=== PATIENT | female | born 1970 | race Caucasian/White ===

== ENCOUNTER 2018-11-14 00:23 | Inpatient (IN) | payer BC ==
--- NOTE | 2018-11-13 13:36 | LEVENE H&P ---
DATE OF ADMISSION: November 14, 2018 IDENTIFICATION/CHIEF COMPLAINT The patient is a 48-year-old woman with a chief complaint of right knee pain. HISTORY OF PRESENT ILLNESS The patient has a long standing history of debilitating arthritis, both DJD as well as rheumatoid that has been progressively problematic and refractory to conservative care. Surgery is indicated to relieve symptoms after failure of nonoperative measures. PAST MEDICAL HISTORY Notable for the above known history of rheumatoid arthritis. PAST SURGICAL HISTORY 1. Known for a hysterectomy. 2. Bladder lift. 3. Bilateral knee surgeries. 4. Cholecystectomy. 5. Tonsillectomy. ALLERGIES GABAPENTIN which causes itching. CURRENT MEDICATIONS 1. Chantix 1 mg p.o. b.i.d. 2. Omeprazole 40 mg p.o. q day. 3. Methotrexate 25 mg once a week injected. 4. Diclofenac 75 mg p.o. b.i.d. 5. Metoprolol 25 mg p.o. q day. 6. Folate 1 mg p.o. q day. 7. Vitamin D 1000 units per day. 8. Pain medicine rarely used as needed Hydrocodone for intense discomfort. FAMILY HISTORY Non-contributory. SOCIAL HISTORY Notable for smoking for 35 years. She has quit just recently in preparation for surgery. She drinks alcohol socially. She denies abuse. REVIEW OF SYSTEMS Negative. PHYSICAL EXAMINATION GENERAL: This is a healthy female. HEENT: Normocephalic, atraumatic. NECK: Supple. LUNGS: Clear to auscultation bilaterally. HEART: Regular rate and rhythm. ABDOMEN: Benign. ORTHOPEDIC EXAMINATION The right knee has a well healed prior portals. Varus alignment is noted. Effusion is present. She is still at end range. Extensor function is intact. Gross stability is good. RADIOGRAPHS Demonstrate endstage degenerative joint disease. ASSESSMENT Right knee endstage degenerative joint disease progressively painful and debilitating, refractory to conservative care. PLAN Per patient request, we are going to proceed with total knee arthroplasty. The nature of the procedure, the risks, benefits, the anticipated rehabilitative course were reviewed. Risks include but are not limited to , major medical or anesthetic complication, infection, neurovascular injury,blood transfusion, stiffness, scarring, fraction, tendon rupture, instability, implant loosening, migration or failure, persistent or recurrent pain or symptoms, need for additional surgery and other unforeseen. She understands and wishes to proceed. A signed permit is placed in the chart. No guarantees are given or implied. MTDD
[2018-11-13 14:50] LABS: INR 1.01
[2018-11-14] VITALS (9 sets, daily range): BP systolic 117–140; BP diastolic 74–92
[~2018-11-14] VITALS: Ht 162.6 cm; Wt 108.4 kg
[~2018-11-14 00:23] MED LIST: AMOX875T60 PO; ASPI-757 PO; CYCL10TA29 PO; DAP500I IV; DIAZ-308 PO; DICL-195 PO; HYDR-389 PO; METO25TA23 PO; OMEP40CA48 PO; VARE1TAB4 PO
[2018-11-14] MEDS ORDERED: VANCOMYCIN 1 GM VIAL ONE (10:10)
[2018-11-14] MEDS ORDERED: LIDOCAINE 2% IV 100 MG/5ML SYR ONE (11:12)
[2018-11-14] MEDS ORDERED: NORMOSOL R SOLN(*) 1000 ML BAG 1,000 ML IV PRN ×2 (11:15→16:00)
[2018-11-14] MEDS ORDERED: LIDOCAINE/SOD BICARB 8.4% SYR ID ONE (11:15)
[2018-11-14] MEDS ORDERED: PREGABALIN 150 MG CAPSULE PO ONE (11:15)
[2018-11-14] MEDS ORDERED: MIDAZOLAM 2 MG/2 ML VIAL IVP PRN (11:15)
[2018-11-14] MEDS ORDERED: ACETAMINOPHEN 500 MG TAB PO ONE (11:15)
[2018-11-14] MEDS ORDERED: CELECOXIB 200 MG CAP PO ONE (11:15)
[2018-11-14] MEDS ORDERED: ROPIVACAINE/EPI/CLONIDINE/KET 50 ML SYRINGE INJ ONE (11:15)
[2018-11-14] MEDS ORDERED: TRANEXAMIC AC 1000 MG/10ML SDV 1,000 MG in DEXTROSE 5% 50 ML BAG 50 ML IV ONE ×2 (11:15→13:45)
[2018-11-14] MEDS ORDERED: ceFAZolin(*) 2GM/D5W 50ML 50 ML IVPB ONE (11:15)
[2018-11-14] MEDS ORDERED: fentaNYL CITR 100 MCG/2 ML AMP ONE ×2 (11:17→14:02)
[2018-11-14] MEDS ORDERED: PROPOFOL EMUL(*) 10MG/ML 20 ML 20 ML ONE (11:21)
[2018-11-14] MEDS ORDERED: DEXAMETHASONE SOD PHOS 10MG/ML ONE (13:28)
[2018-11-14] MEDS ORDERED: ONDANSETRON 4 MG/2 ML VIAL ONE (13:29)
[2018-11-14] MEDS ORDERED: KETAMINE HCL 200 MG/20 ML MDV ONE (13:30)
[2018-11-14] MEDS ORDERED: LACTATED RINGER 3000 ML BAG IR ONE (14:19)
[2018-11-14] MEDS ORDERED: NS 0.9% IRRIGATION 1000ML PLCT IR ONE (14:20)
[2018-11-14] MEDS ORDERED: WATER STERILE FOR IRRIG 1000ML IR ONE (14:20)
[2018-11-14] MEDS ORDERED: MAGNESIUM HYDROXIDE* 30ML UDCP PO PRN (16:00)
[2018-11-14] MEDS ORDERED: BENZOCAINE/MENTHOL 1 EACH LOZG PO PRN (16:00)
[2018-11-14] MEDS ORDERED: diphenhydrAMINE 50 MG/ML VIAL IVP PRN (16:00)
[2018-11-14] MEDS ORDERED: PROMETHAZINE 25 MG/ML 1 ML AMP IVP PRN (16:00)
[2018-11-14] MEDS ORDERED: DIAZEPAM 5 MG TAB PO PRN (16:00)
[2018-11-14] MEDS ORDERED: diphenhydrAMINE 25 MG CAP PO PRN (16:00)
[2018-11-14] MEDS ORDERED: FLUSH 10 ML SYR IVP PRN (16:00)
[2018-11-14] MEDS ORDERED: ZOLPIDEM TARTRATE 5 MG TAB PO PRN (16:00)
[2018-11-14] MEDS ORDERED: ACETAMINOPHEN 325 MG TAB PO PRN (16:00)
[2018-11-14] MEDS ORDERED: BISACODYL 10 MG SUPP PR PRN (16:00)
--- NOTE | 2018-11-14 16:32 | RADIOLOGY IMAGING REPORT ---
FACILITY: [facility] - [place] PATIENT NAME: Mireya Lovelace : 1970 MR: [id number] V: [id number] EXAM DATE: ORDERING PHYSICIAN: CHINO RUTLEDGE TECHNOLOGIST: Location: [facility] [place] Patient: Mireya Lovelace : 1970 Visit/Account:[id number] Date of Sevice: 11/14/2018 KNEE LIMITED RIGHT Indication: POST R TKA Comparison: None. Findings: There are postoperative changes from right total knee arthroplasty. The femoral, patellar, and tibial components are in good alignment. Impression: Postoperative changes right total knee arthroplasty. Report Dictated By: Óscar Lambert at 11/14/2018 4:27 PM Report E-Signed By: Óscar Lambert at 11/14/2018 4:28 PM WSN:[id number]
[2018-11-14] MEDS: APAP/HYDROCODONE 325/7.5 TAB PO PRN ×2 (17:25→23:38)
[2018-11-14] MEDS: CELECOXIB 200 MG CAP PO SCH (17:43)
--- NOTE | 2018-11-14 18:07 | Hospitalist Consultation ---
History of Present Illness Requesting Physician Dr. Lopez Reason for Consult Medical Management Chief Complaint s/p right knee replacement History of Present Illness She was admitted s/p right knee replacement. It is reported the surgery went well and without complication. History Problems: (1) RA (rheumatoid arthritis) Status: Chronic (2) Santoro's esophagus Status: Chronic (3) Arrhythmia Home Meds Reported Medications Metoprolol Succinate (METOPROLOL SUCCINATE) Unknown Strength Tab.er.24h, PO QDAY, TAB 11/08/18 Varenicline Tartrate (CHANTIX) 1 Mg Tablet, 1 MG PO BID 11/08/18 Acetaminophen/Hydrocodone (HYDROCODON-ACETAMINOPH 7.5-325) 1 Each Ea, 1 EACH PO QDAY PRN for PAIN, EA 09/07/17 Cyclobenzaprine Hcl (CYCLOBENZAPRINE HCL) 10 Mg Tablet, 10 MG PO PRN, #9 TAB 09/07/17 Omeprazole (OMEPRAZOLE) 40 Mg Capsule.dr, 40 MG PO QDAY, CAP 09/07/17 Discontinued Reported Medications Aspirin (ASPIRIN) 325 Mg Tablet, 325 MG PO DAILY, TAB 09/10/17 Daptomycin (CUBICIN) 500 Mg Soln, 660 MG IV DAILY 09/10/17 Diclofenac Sodium (DICLOFENAC SODIUM) 75 Mg Tablet.dr, 75 MG PO BID, TAB 09/07/17 Allergies: Coded Allergies: No Known Drug Allergies (Unverified , 09/07/17) Hx Smoking: Yes Smoking Status: Former Smoker, Heavy Tobacco Smoker When Quit Tobacco?: 11/04/18 Caffeine Intake: Soda Caffeine/Cups Per Day: 6/DAY Hx Alcohol Use: Yes Alcohol Used: Beer Hx Substance Use Disorder: Yes Social Drug Use: Currently Social Drugs: Marijuana, Meth Other Social Drugs: CBD, SPEED Amount Of Social Drug/s Used: 1-2/MONTH History of IV Drug Use: No Review of Systems All Systems Reviewed/Normal: Yes, Except as Noted Exam Vital Signs Vital Signs Date Time Temp Pulse Resp B/P (MAP) Pulse Ox O2 Delivery O2 Flow Rate FiO2 11/14/18 17:10 81 12 98 11/14/18 17:10 97.9 117/78 (91) Nasal Cannula 2.0 General Appearance: Alert, Awake, No Acute Distress, Afebrile Neuro: No Gross deficits Cardiovascular: Regular Rate and Rhythm Respiratory: No Respiratory Distress, Clear to Auscultation GI: Abd Soft and Non-Tender Psych: Alert & Oriented X3, Appropriate Mood & Affect Assessment and Plan Problems: (1) Status post right knee replacement Status: Acute Assessment & Plan: Followed by Dr. Lopez. She will be placed on Aspirin for DVT prophylaxis. (2) Santoro's esophagus Status: Chronic Assessment & Plan: She is on chronic treatment with Omeprazole. She will be placed on Protonix during admission. (3) RA (rheumatoid arthritis) Status: Chronic Assessment & Plan: She was on chronic treatment with Methotrexate, but stopped 5 weeks ago in anticipation of surgery. (4) Arrhythmia Assessment & Plan: She recently was found to have "extra heart beats". Had echo, essentially normal per pt. She reports her PCP placed her on Metoprolol to take for arrhythmia. Venous Thromboembolism Antithrombotics Is Pt On Any Antithrombotics?: RAS Garcia Nov 14, 2018 18:07
--- NOTE | 2018-11-14 21:28 | OPERATIVE REPORT 1 ---
EVENT DATE: November 14, 2018 SURGEON: Gamaliel Lopez MD ANESTHESIOLOGIST: Russ Chisholm MD ANESTHESIA: General plus spinal. INFANTRY OFFICER: Sathish Vargas PA-C PREOPERATIVE DIAGNOSIS Right knee degenerative joint disease and superimposed rheumatoid arthritis. POSTOPERATIVE DIAGNOSIS Right knee degenerative joint disease and superimposed rheumatoid arthritis. PROCEDURE PERFORMED Right total knee arthroplasty. ESTIMATED BLOOD LOSS Minimal. DRAINS None. SPECIMENS None. COMPLICATIONS None apparent. TOURNIQUET TIME 55 minutes IMPLANTS USED [employer] knee system, a 4 right PS femur, 4 standard tibial baseplate, 33 mm universal, symmetric, all-polyethylene button, and a 13 mm PS tibial tray liner. Polyethylene is X3. INDICATIONS Mireya has had intractable pain and disability related to end-stage arthritis. Surgery is indicated to relieve symptoms after failure of other measures. DESCRIPTION OF PROCEDURE Patient is taken to the operating room and placed supine on the operating table. Spinal nerve block is administered by the anesthesiologist. General anesthesia is induced. Standard antibiotics and TXA are administered IV. Right lower extremity is prepped and draped in the usual sterile fashion for orthopedic surgery. Limb is exsanguinated with an Esmarch bandage. Tourniquet is inflated to 300 mmHg. A midline longitudinal incision is made and carried down through the skin and subcutaneous tissue to the extensor mechanism. Full-thickness flap is developed far enough medially to allow a medial parapatellar arthrotomy be performed. Patella is everted. Knee is brought into a flexed position. Fat pad, anterior horns of the menisci, and the cruciate ligaments are debrided. Subperiosteal medial release is initiated to balance the knee in a titrated fashion due to the varus deformity. A step drill is used to enter the distal femur. A 10-inch long alignment guide is used to engage the isthmus. Cut is set for 6 degrees of valgus relative to the anatomic axis. A 10 mm resection block is applied to the distal femoral, cuts made with an oscillating saw. AP sizing guide is applied to the distal femoral cut and positioned for 3 degrees of external rotation relative to the posterior condyles. The size 4 is optimal without risk of notching. A four-in-one cutting block is applied. Anterior, posterior, posterior chamfer, and anterior chamfer cuts are made respectively. PS block is applied and centered. Medial and lateral bone is removed through the box. Trial femur has nice [id number] fit. Attention is turned to tibial preparation. Extramedullary guide is applied, positioned for varus, valgus, posterior slope, and rotation. This is set to take 9 mm from the relatively intact lateral tibial plateau. It is dropped down another millimeter or two to assure an adequate cut. Block is pinned, extramedullary alignment check is made, and cuts are made with an oscillating saw. After osteophyte removal and a bit of additional medial release, the capsule is balanced and symmetric with no additional releases required. The size 4 tibial baseplate provides optimum bony coverage without soft tissue overhang. This is inserted along with the trial liner and trial femur. Knee is brought to extension. Patella is taken from a starting thickness of 23 to a residual of 14 mm with a patellar clamp and oscillating saw. The 33 provides optimal bony coverage without soft tissue overhang. Lug holes are drilled. Patella tracks nicely with the no-touch technique. Final tibial preparation consists of assuring appropriate rotational and translational positioning of the component. Boss is reamed. Fin is punched. Surface is lavaged. A mix of methacrylate is made, and components are cemented in a single stage. Once the cement is fully polymerized, tourniquet is deflated. Hemostasis is assured. Wound is copiously lavaged. A 13 PS tibial tray liner fills up the gap ideally, allowing the knee to drop to full extension without hyperextension, providing optimal soft tissue tension and stability. Tray is lavaged and dried. The actual liner is locked into the baseplate. Once reduced, the arthrotomy is closed with in flexion with #2 Ethibond, subcutaneous tissue with 3-0 Vicryl, and skin with surgical magan. Xeroform is applied for a dry, sterile dressing and compression wrap. Patient is awakened from anesthesia and taken to the recovery room in stable condition having tolerated the procedure well. PLAN Plan is for standard TKA rehab protocol. [facility]
[2018-11-14] MEDS: VARENICLINE 1 MG TAB PO SCH (21:37)
[2018-11-14] MEDS: METOPROLOL SUCC XL 25 MG TABCR PO SCH (21:37)
[2018-11-14] MEDS: ceFAZolin(*) 1 GM VIAL 1 GM in NS(*) 0.9% 100 ML ADDVANT BAG 100 ML IVPB SCH (21:37)
[2018-11-15] VITALS (7 sets, daily range): BP systolic 102–138; BP diastolic 66–83; Ht 162.6 cm; Wt 108.4 kg
[2018-11-15] MEDS: APAP/HYDROCODONE 325/7.5 TAB PO PRN ×4 (04:49→21:06)
[2018-11-15] MEDS: ceFAZolin(*) 1 GM VIAL 1 GM in NS(*) 0.9% 100 ML ADDVANT BAG 100 ML IVPB SCH ×2 (06:11→14:09)
[2018-11-15] MEDS: CELECOXIB 200 MG CAP PO SCH ×2 (07:38→16:40)
[2018-11-15] MEDS: ASPIRIN 325 MG TAB PO SCH (08:15)
[2018-11-15] MEDS: VARENICLINE 1 MG TAB PO SCH ×2 (08:15→17:45)
[2018-11-15] MEDS ORDERED: PANTOPRAZOLE SOD 40 MG TABEC PO SCH (09:00)
--- NOTE | 2018-11-15 09:50 | NUR ---
Physical Therapy Impression PT eval completed followed by ambulation in hallway. Pt demos a very slow garry that is currently not functional for household distances. Pt notes that she will need to be fully indep with bed mobility and especially stairs in her multi-level home, in order to discharge home safely. Pt would like to look in to short-term rehab to ensure indep prior to d/c home. Physical Therapy Goals 1. Pt to be indep with bed mobility and supine to/from sit transfers 2. Pt to be indep with sit to/from stand transfers 3. Pt to be indep with ambulation x 300' with FWW 4. Pt to marcia up/down 15 steps with rail and least restrictive device with full indep to ensure safety. Patient's Goals
[2018-11-15] MEDS: CYCLOBENZAPRINE HCL 10 MG TAB PO PRN (10:06)
--- NOTE | 2018-11-15 11:44 | Hospitalist Progress Note ---
Subjective Progress Notes Subjective She was admitted after knee replacement. She has no complaints this morning. She had no acute events overnight. Patient Complains of: Cardiovascular: No: Chest Pain Respiratory: No: Shortness of Breath Physical Exam Vital Signs Date Time Temp Pulse Resp B/P (MAP) Pulse Ox O2 Delivery O2 Flow Rate FiO2 11/15/18 11:26 90 11/15/18 07:59 97.9 74 16 102/66 (78) Room Air 11/14/18 19:57 0.5 Intake and Output 11/15/18 07:00 Intake Total 2222 ml Output Total 75 ml Balance 2147 ml Intake Oral 972 ml IV Total 1250 ml Output Estimated Blood Loss 75 ml # Voids 3 General Appearance: Alert, Awake, No Acute Distress, Afebrile Neuro: No Gross deficits Cardiovascular: Regular Rate and Rhythm Respiratory: No Respiratory Distress, Clear to Auscultation Psych: Alert & Oriented X3, Appropriate Mood & Affect Assessment and Plan Problems: (1) Status post right knee replacement Status: Acute Assessment & Plan: Followed by Dr. Lopez. She will be placed on Aspirin for DVT prophylaxis. (2) Santoro's esophagus Status: Chronic Assessment & Plan: She is on chronic treatment with Omeprazole. She will be placed on Protonix during admission. (3) RA (rheumatoid arthritis) Status: Chronic Assessment & Plan: She was on chronic treatment with Methotrexate, but stopped 5 weeks ago in anticipation of surgery. (4) Arrhythmia Assessment & Plan: She recently was found to have "extra heart beats". Had echo, essentially normal per pt. She reports her PCP placed her on Metoprolol to take for arrhythmia. Exam Sepsis Risk: No Definite Risk RAS ERNSTP Nov 15, 2018 11:44
[2018-11-15] MEDS ORDERED: MORPHINE 2 MG/ML SYR IVP PRN (14:35)
--- NOTE | 2018-11-15 17:23 | NUR ---
Physical Therapy Impression Pt attempted platform step with rail and walker. Pt demos increased difficulty due to increased pain and decreased ROM on L) (Non-surgical side) which limits ability, especially to descend stairs. Pt has numerous stairs both to access home and to navigate environment within home. Pt would benefit from further short-term subacute or acute rehab prior to d/c home, in order to ensure return to safe prior level of function with this activity. Physical Therapy Goals 1. Pt to be indep with bed mobility and supine to/from sit transfers 2. Pt to be indep with sit to/from stand transfers 3. Pt to be indep with ambulation x 300' with FWW 4. Pt to marcia up/down 15 steps with rail and least restrictive device with full indep to ensure safety. Patient's Goals
[2018-11-15] MEDS: METOPROLOL SUCC XL 25 MG TABCR PO SCH (21:06)
[2018-11-16] MEDS: CYCLOBENZAPRINE HCL 10 MG TAB PO PRN ×3 (01:12→23:46)
[2018-11-16] MEDS: APAP/HYDROCODONE 325/7.5 TAB PO PRN ×5 (01:12→23:46)
[2018-11-16 01:14] VITALS: BP 134/83
[2018-11-16 03:23] VITALS: BP 139/83
[2018-11-16] MEDS: VARENICLINE 1 MG TAB PO SCH ×2 (05:18→18:05)
[2018-11-16] MEDS: PANTOPRAZOLE SOD 40 MG TABEC PO SCH (05:18)
[2018-11-16 06:48] VITALS: BP 124/73
[2018-11-16] MEDS: ASPIRIN 325 MG TAB PO SCH (09:20)
[2018-11-16] MEDS: CELECOXIB 200 MG CAP PO SCH ×2 (09:20→16:16)
--- NOTE | 2018-11-16 09:51 | NUR ---
Physical Therapy Impression Pt tearful upon PT arrival and notes that she is having difficulty with CPM positioning and pain management. PT worked with pt and spouse to determine a better fit and position for R) LE in CPM. Reviewed CPM settings and self progression with flexion as tolerated and that pt is only required to be in this unit for a minimum of 6 hours a day. Unit can certainly be removed for meal times and rest breaks as desired. Pt requires Mod assist to complete ther ex and is currently unable to lift R) LE against gravity, demonstrating 2+/5 for strength overall. Knee flexion in supine with heel slide is 60 degrees, limiting her functional ability with sit to/from stand, as L) LE (Non-surgical side) is also very arthritic. Pt requires Min assist for bed mobility and has been additionally receiving trng with using leg diesel fitter mechanic to assist with R) LE in/out of bed. From raised bed pt is SBA/CGA with FWW, but requires Min assist from lower surfaces. Pt requires a modified approach to descend platform step, which decreases her need to flex L) (non-surgical knee). Pt has numerous stairs to negotiate in the home environment and will not be able to modify in this manner for stairs in succession. Pt would benefit from further rehab to address increased flexion and strength of R) surgical LE to maneuver stairs more safely and indep. Physical Therapy Goals 1. Pt to be indep with bed mobility and supine to/from sit transfers 2. Pt to be indep with sit to/from stand transfers 3. Pt to be indep with ambulation x 300' with FWW 4. Pt to marcia up/down 15 steps with rail and least restrictive device with full indep to ensure safety. Patient's Goals
--- NOTE | 2018-11-16 11:04 | Hospitalist Progress Note ---
Subjective Progress Notes Subjective She was admitted after knee replacement. She had no acute events overnight. Patient Complains of: Cardiovascular: No: Chest Pain Respiratory: No: Shortness of Breath Physical Exam Vital Signs Date Time Temp Pulse Resp B/P (MAP) Pulse Ox O2 Delivery O2 Flow Rate FiO2 11/16/18 07:46 93 Room Air 11/16/18 06:48 98.6 83 16 124/73 (90) 11/14/18 19:57 0.5 Intake and Output 11/16/18 07:00 Intake Total 250 ml Balance 250 ml Intake Oral 250 ml # Voids 4 General Appearance: Alert, Awake, No Acute Distress, Afebrile Neuro: No Gross deficits Cardiovascular: Regular Rate and Rhythm Respiratory: No Respiratory Distress, Clear to Auscultation Psych: Alert & Oriented X3, Appropriate Mood & Affect Assessment and Plan Problems: (1) Status post right knee replacement Status: Acute Assessment & Plan: Followed by Dr. Lopez. She will be placed on Aspirin for DVT prophylaxis. She plans to go to [facility] tomorrow. (2) Santoro's esophagus Status: Chronic Assessment & Plan: She is on chronic treatment with Omeprazole. She will be placed on Protonix during admission. (3) RA (rheumatoid arthritis) Status: Chronic Assessment & Plan: She was on chronic treatment with Methotrexate, but stopped 5 weeks ago in anticipation of surgery. (4) Arrhythmia Assessment & Plan: She recently was found to have "extra heart beats". Had echo, essentially normal per pt. She reports her PCP placed her on Metoprolol to take for arrhythmia. Exam Sepsis Risk: No Definite Risk RAS ERNST Nov 16, 2018 11:04
[2018-11-16] MEDS: oxyCODONE HCL 5 MG CAP PO PRN ×2 (11:31→19:43)
--- NOTE | 2018-11-16 12:38 | NUR ---
ECF Referral - Notified by SUYAPA Waite that this patient's [employer] will not authorize a skilled rehab facility unless they offer 7 day a week therapy. [facility] does not offer 7days a week therapy. [facility] with [facility] who [facility] Kenya Hay notified.
[2018-11-16 14:08] VITALS: BP 137/76
--- NOTE | 2018-11-16 17:15 | NUR ---
Physical Therapy Impression Pt progressing with half height stairs, but is not yet able to descend full standard steps indep and safely. Physical Therapy Goals 1. Pt to be indep with bed mobility and supine to/from sit transfers 2. Pt to be indep with sit to/from stand transfers 3. Pt to be indep with ambulation x 300' with FWW 4. Pt to marcia up/down 15 steps with rail and least restrictive device with full indep to ensure safety. Patient's Goals
[2018-11-16 19:44] VITALS: BP 118/73
[2018-11-16] MEDS: METOPROLOL SUCC XL 25 MG TABCR PO SCH (21:30)
[2018-11-16 23:48] VITALS: BP 144/83
[2018-11-17 02:53] VITALS: BP 134/91
[2018-11-17] MEDS: APAP/HYDROCODONE 325/7.5 TAB PO PRN ×4 (03:42→16:44)
[2018-11-17] MEDS: CYCLOBENZAPRINE HCL 10 MG TAB PO PRN (03:45)
[2018-11-17] MEDS: PANTOPRAZOLE SOD 40 MG TABEC PO SCH (06:07)
[2018-11-17] MEDS: VARENICLINE 1 MG TAB PO SCH (06:07)
[2018-11-17] MEDS: ASPIRIN 325 MG TAB PO SCH (08:15)
[2018-11-17] MEDS: CELECOXIB 200 MG CAP PO SCH ×2 (08:15→16:44)
--- NOTE | 2018-11-17 08:55 | NUR ---
Physical Therapy Impression Pt making steady, slow progress. Pt agreeable to await insurance authorization for further rehab. Pt is aware that if this is not approved she may have to make other arrangements for temporary housing without stairs and receive home healthcare services until she is able to complete stairs safely to return home. Pt is optimistic that insurance will acknowledge this concern and provide for further short-term or acute rehab. Physical Therapy Goals 1. Pt to be indep with bed mobility and supine to/from sit transfers 2. Pt to be indep with sit to/from stand transfers 3. Pt to be indep with ambulation x 300' with FWW 4. Pt to marcia up/down 15 steps with rail and least restrictive device with full indep to ensure safety. Patient's Goals
[2018-11-17] MEDS ORDERED: ASPI-757 PO (10:38)
--- NOTE | 2018-11-17 10:40 | Hospitalist Progress Note ---
Subjective Progress Notes Subjective She was admitted after knee replacement. She has no complaints this morning. She had no acute events overnight. Patient Complains of: Cardiovascular: No: Chest Pain Respiratory: No: Shortness of Breath Physical Exam Vital Signs Date Time Temp Pulse Resp B/P (MAP) Pulse Ox O2 Delivery O2 Flow Rate FiO2 11/17/18 09:51 93 Room Air 11/17/18 09:00 11/17/18 02:53 98.8 93 18 134/91 (105) Intake and Output 11/17/18 07:00 Intake Total 700 ml Balance 700 ml Intake Oral 700 ml # Voids 5 General Appearance: Alert, Awake, No Acute Distress, Afebrile Neuro: No Gross deficits Cardiovascular: Regular Rate and Rhythm Respiratory: No Respiratory Distress, Clear to Auscultation Psych: Alert & Oriented X3, Appropriate Mood & Affect Assessment and Plan Problems: (1) Status post right knee replacement Status: Acute Assessment & Plan: Followed by Dr. Lopez. She will be placed on Aspirin for DVT prophylaxis. She is awaiting placement for rehab. (2) Santoro's esophagus Status: Chronic Assessment & Plan: She is on chronic treatment with Omeprazole. She will be placed on Protonix during admission. (3) RA (rheumatoid arthritis) Status: Chronic Assessment & Plan: She was on chronic treatment with Methotrexate, but stopped 5 weeks ago in anticipation of surgery. (4) Arrhythmia Assessment & Plan: She recently was found to have "extra heart beats". Had echo, essentially normal per pt. She reports her PCP placed her on Metoprolol to take for arrhythmia. Exam Sepsis Risk: No Definite Risk RAS ERNST Nov 17, 2018 10:40
[2018-11-17 12:13] VITALS: BP 124/75
[2018-11-17] MEDS ORDERED: CYCL10TA29 PO ×2 (16:24)
[2018-11-17] MEDS ORDERED: HYDR-654 PO (16:26)
[2018-11-17] MEDS ORDERED: OXYC5TAB38 PO (16:28)
== END 2018-11-17 17:00 | disposition short-term general hospital (02) | DRG 470 ==
LOC: OR 00:23 → MED 17:20
PROVIDERS: ADMIT Orthopaedic Surgery; ATTEND Orthopaedic Surgery
PROC: 0SRC0J9 Replacement of Right Knee Joint with Synthetic Substitute, Cemented, Open Approach (ICD-10-PCS; principal; 2018-11-14 13:21)
DX: M17.11 Unilateral primary osteoarthritis, right knee (principal); Z68.41 Body mass index [BMI] 40.0-44.9, adult; M06.9 Rheumatoid arthritis, unspecified; M21.161 Varus deformity, not elsewhere classified, right knee; K22.70 Barrett's esophagus without dysplasia; I49.9 Cardiac arrhythmia, unspecified; E66.01 Morbid (severe) obesity due to excess calories; K21.9 Gastro-esophageal reflux disease without esophagitis; J43.9 Emphysema, unspecified; Z90.710 Acquired absence of both cervix and uterus; Z90.49 Acquired absence of other specified parts of digestive tract; Z88.8 Allergy status to other drugs, medicaments and biological substances; Z87.891 Personal history of nicotine dependence
CPT/HCPCS: 36415; 76942; 85610; 86850; 86900; 86901; 97161; C1713; C1776; J0690; J1100; J2001; J2250; J2270; J2405; J2704; J3010; J3370; J3490; J7050; J7060

== ENCOUNTER 2019-01-23 00:43 | Inpatient (IN) | payer BC ==
[2018-11-15 14:14] VITALS: Ht 162.6 cm; Wt 108.0 kg
[2019-01-22 13:23] LABS: INR 0.95
[~2019-01-23] VITALS: Ht 162.6 cm; Wt 108.0 kg
[2019-01-23] VITALS (15 sets, daily range): BP systolic 96–160; BP diastolic 68–98
[~2019-01-23 00:43] MED LIST changes: +CELE-1 PO; +HYDR-654 PO; +OXYC5TAB38 PO
--- NOTE | 2019-01-23 05:15 | LEVENE H&P ---
DATE OF ADMISSION: January 23, 2019 IDENTIFICATION/CHIEF COMPLAINT Mireya is a 48-year-old woman with a chief complaint of left knee pain. HISTORY OF PRESENT ILLNESS The patient has a longstanding history of inflammatory arthritis as well as post-traumatic arthritis. This has become progressively painful and debilitating, refractory to conservative care. Surgery is indicated to relieve symptoms after failure of nonoperative measures. PAST MEDICAL HISTORY Notable for acid reflux disease. ALLERGIES GABAPENTIN. CURRENT MEDICATIONS 1. Metoprolol 25 mg p.o. daily. 2. Cyclobenzaprine 10 mg as needed for spasm. 3. Chantix 1 mg p.o. b.i.d. 4. Omeprazole 40 mg p.o. daily. PAST SURGICAL HISTORY Notable for: 1. Contralateral knee replacement. 2. Hysterectomy. 3. Prior knee arthroscopy. 4. I and Ds. 5. Cholecystectomy. 6. Tonsillectomy. 7. Bladder lift. FAMILY HISTORY Noncontributory. SOCIAL HISTORY Notable for smoking for 35 years. She quit about a month or two ago, prior to prior surgery. She drinks alcohol socially. She denies abuse. REVIEW OF SYSTEMS Negative. PHYSICAL EXAMINATION GENERAL: This is a healthy female. HEENT: Normocephalic, atraumatic. NECK: Supple. LUNGS: Clear. HEART: Regular. ABDOMEN: Soft. ORTHOPEDIC: Left knee has old, well-healed scars from prior arthroscopy and surgery. She has crepitus. She is stiff at end range. Effusions are present. Extensor function is intact. Gross stability is good. Calves are nontender. Neurovascular function intact. Radiographs demonstrate end-stage arthritis. ASSESSMENT Left knee end-stage degenerative joint disease, refractory to conservative care. PLAN Per patient request, we will proceed with total knee arthroplasty. Nature of the procedure, risks, benefits, and the anticipated rehab course reviewed. The risks of the procedure include but are not limited to , major medical or anesthetic complications, infection, neurovascular injury, blood transfusion, stiffness, scarring, fracture, tendon rupture, instability, implant loosening, migration, or failure, persistent or recurrent pain, need for additional surgery, other unforeseen. She understands and wishes to proceed. A signed permit was placed in the chart. No guarantees were given or implied. DANI
[2019-01-23] MEDS: LIDOCAINE/SOD BICARB 8.4% SYR ID ONE ×2 (06:01→06:56)
[2019-01-23] MEDS ORDERED: VANCOMYCIN 1 GM VIAL ONE (06:47)
[2019-01-23] MEDS ORDERED: fentaNYL CITR 100 MCG/2 ML AMP ONE ×4 (07:31→11:29)
[2019-01-23] MEDS ORDERED: LIDOCAINE 2% IV 100 MG/5ML SYR ONE (07:32)
[2019-01-23] MEDS ORDERED: PROPOFOL EMUL(*) 10MG/ML 20 ML 20 ML ONE (07:33)
[2019-01-23] MEDS ORDERED: DEXAMETHASONE SOD PHOS 10MG/ML ONE (08:28)
[2019-01-23] MEDS ORDERED: ONDANSETRON 4 MG/2 ML VIAL ONE (08:30)
[2019-01-23] MEDS ORDERED: BUPIVACAIN 0.25% INJ 50ML VIAL ONE (08:34)
[2019-01-23] MEDS ORDERED: TRIAMCINOLONE ACE(*) 40 MG/ML 1 ML ONE (08:35)
[2019-01-23] MEDS ORDERED: KETAMINE HCL 200 MG/20 ML MDV ONE ×2 (08:43→09:49)
[2019-01-23] MEDS ORDERED: MIDAZOLAM 2 MG/2 ML VIAL IVP PRN (08:45)
[2019-01-23] MEDS ORDERED: TRANEXAMIC AC 1000 MG/10ML SDV 1,000 MG in DEXTROSE 5% 50 ML BAG 50 ML IV ONE (08:45)
[2019-01-23] MEDS ORDERED: PREGABALIN 150 MG CAPSULE PO ONE (08:45)
[2019-01-23] MEDS ORDERED: ROPIVACAINE/EPI/CLONIDINE/KET 50 ML SYRINGE INJ ONE (08:45)
[2019-01-23] MEDS ORDERED: ACETAMINOPHEN 500 MG TAB PO ONE (08:45)
[2019-01-23] MEDS ORDERED: ceFAZolin(*) 2GM/D5W 50ML 50 ML IVPB ONE (08:45)
[2019-01-23] MEDS ORDERED: NORMOSOL R SOLN(*) 1000 ML BAG 1,000 ML IV PRN ×2 (08:45→11:30)
--- NOTE | 2019-01-23 10:35 | NUR ---
Physical Therapy Impression Pt progressing as anticipated an completed ambulation x 150' with FWW and CGA/SBA. Pt will need to ambulate greater distances and complete multiple stairs to be safe in home environment. Recommend short-term subacute rehab to address higher level goals prior to transition home. Physical Therapy Goals 1. Pt to be modified indep with supine to/from sit transfers 2. Pt to be modified indep with sit to/from stand transfers 3. Pt to tolerate ambulation x 200' with FWW and modified indep 4. Pt to complete up/down 15 steps with rail and modified indep while negotiating the walker up/down various levels indep in order to simulate full access to living areas of her home. Patient's Goals
[2019-01-23] MEDS ORDERED: BENZOCAINE/MENTHOL 1 EACH LOZG PO PRN (11:30)
[2019-01-23] MEDS ORDERED: ACETAMINOPHEN 325 MG TAB PO PRN (11:30)
[2019-01-23] MEDS ORDERED: FLUSH 10 ML SYR IVP PRN (11:30)
[2019-01-23] MEDS ORDERED: PROMETHAZINE 25 MG/ML 1 ML AMP IVP PRN (11:30)
[2019-01-23] MEDS ORDERED: diphenhydrAMINE 25 MG CAP PO PRN (11:30)
[2019-01-23] MEDS ORDERED: diphenhydrAMINE 50 MG/ML VIAL IVP PRN (11:30)
[2019-01-23] MEDS ORDERED: ZOLPIDEM TARTRATE 5 MG TAB PO PRN (11:30)
[2019-01-23] MEDS ORDERED: BISACODYL 10 MG SUPP PR PRN (11:30)
[2019-01-23] MEDS: PROMETHAZINE 25 MG/ML 1 ML AMP ONE (11:36)
--- NOTE | 2019-01-23 12:59 | RADIOLOGY IMAGING REPORT ---
FACILITY: [facility] PATIENT NAME: Mireya Lovelace : 1970 MR: [id number] V: [id number] EXAM DATE: ORDERING PHYSICIAN: CHINO RUTLEDGE TECHNOLOGIST: Location: [facility] [place] Patient: Mireya Lovelace : 1970 Visit/Account:[id number] Date of Sevice: 01/23/2019 KNEE LIMITED LEFT HISTORY: S/P TOTAL KNEE CHECK PLACEMENT OF PROSTHESIS Additional history: None COMPARISON: None. FINDINGS: Patient status post left total knee arthroplasty with patellar resurfacing. Hardware and alignment u nremarkable. Iatrogenic air seen in the soft tissues. IMPRESSION: Status post left total knee arthroplasty unremarkable in appearance. Report Dictated By: Raghu De Paz MD at 01/23/2019 12:52 PM Report E-Signed By: Raghu De Paz MD at 01/23/2019 12:54 PM WSN:CLAY
[2019-01-23] MEDS: APAP/HYDROCODONE 325/7.5 TAB PO PRN ×3 (13:06→22:20)
[2019-01-23] MEDS ORDERED: NS(*) 0.9% 250 ML BAG 250 ML ONE (13:15)
--- NOTE | 2019-01-23 13:56 | Hospitalist Consultation ---
History of Present Illness Requesting Physician Dr. Lopez Reason for Consult Medical Management of Comorbidities Chief Complaint s/p left knee replacement History of Present Illness She was admitted s/p left knee replacement. She has some post-operative bleeding to the left knee, which has been reinforced with additional bandage. History Problems: (1) RA (rheumatoid arthritis) Status: Chronic (2) Arrhythmia Status: Chronic (3) Santoro's esophagus Status: Chronic Home Meds Reported Medications Celecoxib (CELEBREX) 200 Mg Capsule, 200 MG PO BID, CAPSULE 01/17/19 Cyclobenzaprine Hcl (CYCLOBENZAPRINE HCL) 10 Mg Tablet, 10 MG PO TID PRN for SPASMS, #60 TAB 11/17/18 Metoprolol Succinate (METOPROLOL SUCCINATE) Unknown Strength Tab.er.24h, 25 MG PO QDAY, TAB 11/08/18 Varenicline Tartrate (CHANTIX) 1 Mg Tablet, 1 MG PO BID 11/08/18 Omeprazole (OMEPRAZOLE) 40 Mg Capsule.dr, 40 MG PO QDAY, CAP 09/07/17 Discontinued Reported Medications Oxycodone Hcl (OXYCODONE HCL) 5 Mg Tablet, 5 MG PO Q4H PRN for PAIN, #30 11/17/18 Hydrocodone Bit/Acetaminophen (NORCO 7.5-325 TABLET) 1 Each Tablet, 1-2 EACH PO Q4-6H PRN for PAIN, #42 Breakthrough pain 11/17/18 Cyclobenzaprine Hcl (CYCLOBENZAPRINE HCL) 10 Mg Tablet, 10 MG PO TID PRN for SPASMS, #60 TAB 11/17/18 Discontinued Scripts Aspirin (ASPIRIN) 325 Mg Tablet, 325 MG PO QDAY, #30 TAB Prov:RAS ERNST STRATEGIC MARKETING MANAGER 11/17/18 Allergies: Coded Allergies: No Known Drug Allergies (Unverified , 09/07/17) Hx Smoking: Yes (1PPD X35 YEARS ) Smoking Status: Former Smoker When Quit Tobacco?: 2018 Caffeine Intake: Coffee, Soda Caffeine/Cups Per Day: 3-4 32 OZ/DAY Hx Alcohol Use: Yes Hx Substance Use Disorder: Yes (CURRENT CBD GUMMIES AND THC USE. FORMER METH USE QUIT 1988) Social Drug Use: Currently Social Drugs: Marijuana, Meth Amount Of Social Drug/s Used: CBD AND THC USE TO HELP WITH PAIN OCCATIONALLY 2/MONTH History of IV Drug Use: No Review of Systems All Systems Reviewed/Normal: Yes, Except as Noted Gastrointestinal: Nausea Musculoskeletal: Other (bleeding from left knee) Exam Vital Signs Vital Signs Date Time Temp Pulse Resp B/P (MAP) Pulse Ox O2 Delivery O2 Flow Rate FiO2 01/23/19 12:15 86 16 95 01/23/19 06:21 96.9 160/98 (118) Room Air General Appearance: Alert, Awake, No Acute Distress, Afebrile Neuro: No Gross deficits Cardiovascular: Regular Rate and Rhythm Respiratory: No Respiratory Distress, Clear to Auscultation GI: Abd Soft and Non-Tender Extremities: Other (bleeding from left knee, RN reinforced dressing, bleeding now controlled) Psych: Alert & Oriented X3, Appropriate Mood & Affect Assessment and Plan Problems: (1) Status post left knee replacement Status: Acute Assessment & Plan: Followed by Dr. Lopez. She will be placed on Aspirin for DVT prophylaxis. She would like to go to [place] rehab. (2) Santoro's esophagus Status: Chronic Assessment & Plan: She is on chronic treatment with Omeprazole. She will be placed on Protonix during admission. (3) Arrhythmia Status: Chronic Assessment & Plan: She is on chronic treatment with Metoprolol. This has been restarted with hold parameters. Venous Thromboembolism Antithrombotics Is Pt On Any Antithrombotics?: No Prophylaxis Tx Contraindicated Pharmacological Contraindicati: Surgical Contraindication RAS ERNST STRATEGIC MARKETING MANAGER Jan 23, 2019 13:56
[2019-01-23 15:09] LABS: PLATELET COUNT, AUTOMATED 393 K/uL (150-450)
[2019-01-23] MEDS: CELECOXIB 200 MG CAP PO SCH (16:24)
[2019-01-23] MEDS: ceFAZolin(*) 1 GM VIAL 1 GM in NS(*) 0.9% 100 ML MINI-BAG 100 ML IVPB SCH (16:24)
[2019-01-23] MEDS: DIAZEPAM 5 MG TAB PO PRN ×2 (16:34→22:37)
--- NOTE | 2019-01-23 17:30 | NUR ---
Physical Therapy Impression PT eval and treat completed. Pt notes 15 stairs required to access multiple levels of her home and spouse is not available during the day to assist. Pt will need to be fully indep and be able to transport walker between levels as well, in order to transition home successfully. Prior to PT visit pt experienced increased bleeding with symptomatic low BP. PT session was postponed until BP improved and LE was assessed by PA. Pt tolerated ambulation to/from BR with CGA and Min assist required for transfers. Pt would benefit from further rehab prior to d/c home. Physical Therapy Goals 1. Pt to be modified indep with supine to/from sit transfers 2. Pt to be modified indep with sit to/from stand transfers 3. Pt to tolerate ambulation x 200' with FWW and modified indep 4. Pt to complete up/down 15 steps with rail and modified indep while negotiating the walker up/down various levels indep in order to simulate full access to living areas of her home. Patient's Goals
[2019-01-23] MEDS: VARENICLINE 1 MG TAB PO SCH (17:34)
--- NOTE | 2019-01-23 20:52 | OPERATIVE REPORT 1 ---
EVENT DATE: January 23, 2019 SURGEON: Gamaliel Lopez MD ANESTHESIOLOGIST: Russ Chisholm MD ANESTHESIA: General plus spinal. RIG OPERATOR: Sathish Vargas PA-C PREOPERATIVE DIAGNOSES 1. Left knee degenerative joint disease. 2. Right shoulder cuff disease and arthritis. POSTOPERATIVE DIAGNOSES 1. Left knee degenerative joint disease. 2. Right shoulder cuff disease and arthritis. PROCEDURES PERFORMED 1. Right shoulder injection of corticosteroid. 2. Left total knee arthroplasty. ESTIMATED BLOOD LOSS Minimal. DRAINS None. SPECIMENS None. COMPLICATIONS None apparent. TOURNIQUET TIME 68 minutes. IMPLANTS USED On the left knee, 4 left PS femur Bob Triathlon, 4 standard tibial baseplate, an 11 mm PS tibial tray liner, and a 36 mm universal, symmetric, all- polyethylene patellar button. Polyethylene is X3. INDICATIONS Mireya is 48-year-old woman with intractable pain and disability related to end-stage DJD with superimposed rheumatoid disease. Surgery is indicated to relieve pain after failure of nonoperative measures. DESCRIPTION OF PROCEDURE Patient is taken to the operating room and placed supine on the operating table. General anesthesia is induced after spinal block is placed by the anesthesiologist. The right shoulder is prepped sterilely and then infiltrated with 2 mL mixture of Marcaine containing 40 mg of Kenalog. A Band-Aid is applied. Subsequently, the left lower extremity is prepped and draped in the usual sterile fashion for orthopedic surgery. Limb is exsanguinated with an Esmarch bandage. Tourniquet is inflated to 300 mmHg. A midline longitudinal incision is made. This is carried of to incorporate an old medial parapatellar incision, so it is not a true midline incision. Dissection is carried down through the skin and scar to the extensor mechanism. Full-thickness flaps are developed far enough to allow medial parapatellar arthrotomy be performed. Patella is everted. Knee is brought into a flexed position. Fat pad, anterior horns of the menisci, and the cruciate ligaments are debrided. Subperiosteal release is initiated medially to start to balance the knee. A step drill is used to enter the distal femur. A 10-inch long alignment guide is used to engage the isthmus. Cut is set for 6 degrees of valgus relative to the anatomic axis. A 10 mm resection block is applied and pinned. Cuts made with an oscillating saw. AP sizing guide is applied to the distal femur and positioned for 3 degrees of external rotation relative to the posterior condyles. The size 4 is optimal without risk of notching. A four-in-one cutting block is applied. Anterior, posterior, posterior chamfer, and anterior chamfer cuts are made respectively. PS block is applied and centered. Medial and lateral bone is removed through the box. Trial femur has nice [id number] fit. Attention is turned to tibial preparation. The extramedullary guide is applied, positioned for varus, valgus, posterior slope, and rotation. This is set to resect 9 mm from the relatively intact lateral tibial plateau. It is dropped down another millimeter or two to assure an adequate cut. Block is pinned. Extramedullary alignment check is made, and the cut is made with an oscillating saw. A bit of additional removal of osteophyte is performed, and the gaps are balanced and symmetric with no additional releases required. The size 4 baseplate provides optimum bony coverage without soft tissue overhang. This is inserted along with the trial liner and trial femur. Knee is brought to extension. Patella is taken from a starting thickness of 23 to a residual of 14 mm with a patellar clamp and oscillating saw. The 36 provides optimal bony coverage without soft tissue overhang. Lug holes are drilled. Patella tracks nicely with the no- touch technique. Final tibial preparation consists of assuring appropriate rotational and translational positioning of the component. The boss is reamed. Fin is punched. Surface is lavaged. A mix of methacrylate is made, and components are cemented in a single stage. Once the cement is fully polymerized, tourniquet is deflated. Hemostasis is assured. All debris is cleared from the wound. The 11 PS tibial tray trial fills up the gap ideally, allowing the knee to drop to full extension without hyperextension, providing optimal soft tissue tension and stability. Tray is lavaged and dried again. The 11 mm PS tibial tray liner is locked into the baseplate. The joint is reduced. Arthrotomy is closed with in flexion with #2 Ethibond with vancomycin powder placed deep in the wound. Subcutaneous tissue is lavaged. Derm is closed with 3-0 Vicryl, skin with ZipLine closure. Xeroform is applied for a dry, sterile dressing and compression wrap. Patient is awakened from anesthesia and taken to the recovery room in stable condition having tolerated the procedure well. PLAN Plan is for standard TKA rehab protocol. MENGD
[2019-01-23] MEDS: METOPROLOL SUCC XL 25 MG TABCR PO SCH (21:00)
[2019-01-24] MEDS: ceFAZolin(*) 1 GM VIAL 1 GM in NS(*) 0.9% 100 ML MINI-BAG 100 ML IVPB SCH ×2 (01:11→08:58)
[2019-01-24 01:24] VITALS: BP 128/67
[2019-01-24] MEDS: APAP/HYDROCODONE 325/7.5 TAB PO PRN ×5 (02:10→21:04)
[2019-01-24] MEDS: VARENICLINE 1 MG TAB PO SCH ×2 (05:28→18:01)
[2019-01-24] MEDS: PANTOPRAZOLE SOD 40 MG TABEC PO SCH (05:28)
[2019-01-24 05:51] LABS: PLATELET COUNT, AUTOMATED 350 K/uL (150-450)
[2019-01-24] MEDS: DIAZEPAM 5 MG TAB PO PRN ×3 (07:00→21:04)
[2019-01-24 07:10] VITALS: BP 140/89
[2019-01-24] MEDS ORDERED: MORPHINE 2 MG/ML SYR IVP ONE (07:22)
[2019-01-24] MEDS: CELECOXIB 200 MG CAP PO SCH ×2 (07:43→16:21)
[2019-01-24] MEDS: METOPROLOL TART 50 MG TAB PO ONE ×2 (08:45→08:58)
[2019-01-24] MEDS: ASPIRIN 325 MG TAB PO SCH (08:58)
[2019-01-24] MEDS ORDERED: METOPROLOL TART 50 MG TAB PO ONE (09:10)
[2019-01-24] MEDS ORDERED: MEPERIDINE 50 MG/ML SYR IM ONE (10:30)
--- NOTE | 2019-01-24 10:34 | Hospitalist Progress Note ---
Subjective Progress Notes Subjective She was admitted s/p left knee replacement. She reports she didn't get much sleep last night, otherwise has no complaints. Patient Complains of: Cardiovascular: No: Chest Pain Respiratory: No: Shortness of Breath Physical Exam Vital Signs Date Time Temp Pulse Resp B/P (MAP) Pulse Ox O2 Delivery O2 Flow Rate FiO2 01/24/19 07:46 98 Room Air 01/24/19 07:10 98.2 106 18 140/89 (106) 01/23/19 19:50 1.0 Intake and Output 01/24/19 01:00 Intake Total 2702 ml Balance 2702 ml Intake Oral 702 ml IV Total 2000 ml # Voids 1 General Appearance: Alert, Awake, No Acute Distress, Afebrile Neuro: No Gross deficits Cardiovascular: Regular Rate and Rhythm Respiratory: No Respiratory Distress, Clear to Auscultation Extremities: Warm, Perfused, Other (bruising to left thigh) Psych: Alert & Oriented X3, Appropriate Mood & Affect Result Diagram: 01/24/1951101/24/19511 Assessment and Plan Problems: (1) Status post left knee replacement Status: Acute Assessment & Plan: Followed by Dr. Lopez. She will be placed on Aspirin for DVT prophylaxis. She would like to go to [place] rehab. (2) Santoro's esophagus Status: Chronic Assessment & Plan: She is on chronic treatment with Omeprazole. She will be placed on Protonix during admission. (3) Arrhythmia Status: Chronic Assessment & Plan: She is on chronic treatment with Metoprolol. This has been restarted with hold parameters. Exam Sepsis Risk: No Definite Risk RAS ERNST EXHIBIT ARTIST Jan 24, 2019 10:34
[2019-01-24] MEDS ORDERED: MEPERIDINE HCL 50 MG/ML SDV 50 MG/ML VIAL IM ONE (10:40)
[2019-01-24 10:49] VITALS: BP 137/78
[2019-01-24 14:58] VITALS: BP 141/87
[2019-01-24] MEDS: MAGNESIUM HYDROXIDE* 30ML UDCP PO PRN (14:58)
--- NOTE | 2019-01-24 17:40 | NUR ---
Physical Therapy Impression Pt tolerated same ambulation distance but declines to attempt further due to increased discomfort. Harmony and step length have improved, with pt tolerating step-through gait pattern during approximately 50% of distance. Will address platform step tomorrow and attempt increased distance. Pt agreeable to transition to short-term subacute rehab for further indep prior to d/c home. Physical Therapy Goals 1. Pt to be modified indep with supine to/from sit transfers 2. Pt to be modified indep with sit to/from stand transfers 3. Pt to tolerate ambulation x 200' with FWW and modified indep 4. Pt to complete up/down 15 steps with rail and modified indep while negotiating the walker up/down various levels indep in order to simulate full access to living areas of her home. Patient's Goals
[2019-01-24 19:20] VITALS: BP 116/83
[2019-01-24] MEDS: METOPROLOL SUCC XL 25 MG TABCR PO SCH (21:00)
[2019-01-24 23:04] VITALS: BP 145/85
[2019-01-25] MEDS: APAP/HYDROCODONE 325/7.5 TAB PO PRN ×5 (01:43→19:13)
[2019-01-25] MEDS: DIAZEPAM 5 MG TAB PO PRN ×3 (03:04→17:06)
[2019-01-25 03:13] VITALS: BP 135/57
[2019-01-25 06:13] LABS: PLATELET COUNT, AUTOMATED 357 K/uL (150-450)
[2019-01-25] MEDS: PANTOPRAZOLE SOD 40 MG TABEC PO SCH (06:34)
[2019-01-25] MEDS: VARENICLINE 1 MG TAB PO SCH ×2 (06:34→17:06)
[2019-01-25 07:31] VITALS: BP 147/106
[2019-01-25] MEDS: CELECOXIB 200 MG CAP PO SCH ×2 (08:43→17:06)
[2019-01-25] MEDS: ASPIRIN 325 MG TAB PO SCH (08:43)
[2019-01-25] MEDS: MAGNESIUM HYDROXIDE* 30ML UDCP PO PRN ×2 (08:43→17:15)
[2019-01-25 09:18] VITALS: BP 132/74
--- NOTE | 2019-01-25 09:25 | NUR ---
Physical Therapy Impression Pt progressing well with functional mobility and distance ambulation. Pt is still limited by numerous stairs to access home and has only completed 2 platform steps at this time. Pt is motivated to address stairs again this afternoon and will attempt to d/c home with [facility] services if this is a safe option for d/c. Pt would certainly still benefit from short-term subacute rehab, however, at this time, [facility] has indicated that she has not been accepted for their services. Physical Therapy Goals 1. Pt to be modified indep with supine to/from sit transfers 2. Pt to be modified indep with sit to/from stand transfers 3. Pt to tolerate ambulation x 200' with FWW and modified indep 4. Pt to complete up/down 15 steps with rail and modified indep while negotiating the walker up/down various levels indep in order to simulate full access to living areas of her home. Patient's Goals
--- NOTE | 2019-01-25 10:32 | Hospitalist Progress Note ---
Subjective Progress Notes Subjective She was admitted s/p knee replacement. She had no acute events overnight. She is awaiting placement at [place] [facility]. Patient Complains of: Cardiovascular: No: Chest Pain Respiratory: No: Shortness of Breath Physical Exam Vital Signs Date Time Temp Pulse Resp B/P (MAP) Pulse Ox O2 Delivery O2 Flow Rate FiO2 01/25/19 09:18 132/74 (93) 01/25/19 07:31 91 Room Air 01/25/19 07:31 98.3 116 20 01/23/19 19:50 1.0 Intake and Output 01/25/19 01:00 Intake Total 358 ml Balance 358 ml Intake Oral 358 ml # Voids 5 General Appearance: Alert, Awake, No Acute Distress, Afebrile Neuro: No Gross deficits Cardiovascular: Regular Rate and Rhythm Respiratory: No Respiratory Distress, Clear to Auscultation Psych: Alert & Oriented X3, Appropriate Mood & Affect Result Diagram: 01/25/19 0532 01/24/19 0512 Assessment and Plan Problems: (1) Status post left knee replacement Status: Acute Assessment & Plan: Followed by Dr. Lopez. She will be placed on Aspirin for DVT prophylaxis. She would like to go to [place] [facility]. (2) Santoro's esophagus Status: Chronic Assessment & Plan: She is on chronic treatment with Omeprazole. She will be placed on Protonix during admission. (3) Arrhythmia Status: Chronic Assessment & Plan: She is on chronic treatment with Metoprolol. This was restarted with hold parameters. Exam Sepsis Risk: No Definite Risk RAS ERNST Jan 25, 2019 10:32
[2019-01-25] MEDS ORDERED: POLYETHYLENE GLYCOL 17 GM PKT PO PRN (14:05)
--- NOTE | 2019-01-25 15:43 | NUR ---
Physical Therapy Impression Pt progressing well with functional mobility and distance ambulation. Pt is still limited by numerous stairs to access home and has only completed 2 platform steps at this time. Pt is motivated to address stairs again this afternoon and will attempt to d/c home with [facility] services if this is a safe option for d/c. Pt would certainly still benefit from short-term subacute rehab, however, at this time, [facility] has indicated that she has not been accepted for their services. Physical Therapy Goals 1. Pt to be modified indep with supine to/from sit transfers 2. Pt to be modified indep with sit to/from stand transfers 3. Pt to tolerate ambulation x 200' with FWW and modified indep 4. Pt to complete up/down 15 steps with rail and modified indep while negotiating the walker up/down various levels indep in order to simulate full access to living areas of her home. Patient's Goals
[2019-01-25 17:07] VITALS: BP 134/85
[2019-01-25 19:43] VITALS: BP 130/88
[2019-01-25] MEDS ORDERED: METOPROLOL SUCC XL 25 MG TABCR PO SCH (21:00)
[2019-01-26] MEDS: MAGNESIUM HYDROXIDE* 30ML UDCP PO PRN (01:28)
[2019-01-26] MEDS: APAP/HYDROCODONE 325/7.5 TAB PO PRN ×3 (01:28→12:11)
[2019-01-26] MEDS: VARENICLINE 1 MG TAB PO SCH (05:03)
[2019-01-26] MEDS: DIAZEPAM 5 MG TAB PO PRN ×2 (05:03→12:11)
[2019-01-26] MEDS: PANTOPRAZOLE SOD 40 MG TABEC PO SCH (05:06)
[2019-01-26 06:59] VITALS: BP 124/79
[2019-01-26] MEDS: CELECOXIB 200 MG CAP PO SCH (07:10)
[2019-01-26] MEDS: ASPIRIN 325 MG TAB PO SCH (08:00)
[2019-01-26] MEDS ORDERED: ASPI-757 PO (09:28)
--- NOTE | 2019-01-26 09:28 | Hospitalist Progress Note ---
Subjective Progress Notes Subjective She was admitted s/p knee replacement. She had no acute events overnight. She plans to go home today with home health. Patient Complains of: Cardiovascular: No: Chest Pain Respiratory: No: Shortness of Breath Physical Exam Vital Signs Date Time Temp Pulse Resp B/P (MAP) Pulse Ox O2 Delivery O2 Flow Rate FiO2 01/26/19 07:19 95 Room Air 01/26/19 06:59 98.2 100 16 124/79 (94) 01/23/19 19:50 1.0 Intake and Output 01/26/19 01:00 Intake Total 600 ml Balance 600 ml Intake Oral 600 ml # Voids 4 # Bowel Movements 1 General Appearance: Alert, Awake, No Acute Distress, Afebrile Neuro: No Gross deficits Cardiovascular: Regular Rate and Rhythm Respiratory: No Respiratory Distress, Clear to Auscultation GI: Soft and Non-Tender Extremities: Warm, Perfused Psych: Alert & Oriented X3, Appropriate Mood & Affect Result Diagram: 01/25/19 0532 01/24/19 0512 Assessment and Plan Problems: (1) Status post left knee replacement Status: Acute Assessment & Plan: Followed by Dr. Lopez. She will be placed on Aspirin for DVT prophylaxis. She will be going home with home health. (2) Santoro's esophagus Status: Chronic Assessment & Plan: She is on chronic treatment with Omeprazole. She will be placed on Protonix during admission. (3) Arrhythmia Status: Chronic Assessment & Plan: She is on chronic treatment with Metoprolol. This was restarted with hold parameters. Exam Sepsis Risk: No Definite Risk RAS ERNST Jan 26, 2019 09:27
--- NOTE | 2019-01-26 10:30 | NUR ---
Physical Therapy Impression PT goals partially met to allow for transition home with [facility] services instead of short-term subacute rehab as recommended by PT. [facility] has declined her and pt feels that she can be safe in the home environment and will work with [facility] to meet goal of further indep with stairs. Physical Therapy Goals 1. Pt to be modified indep with supine to/from sit transfers 2. Pt to be modified indep with sit to/from stand transfers 3. Pt to tolerate ambulation x 200' with FWW and modified indep 4. Pt to complete up/down 15 steps with rail and modified indep while negotiating the walker up/down various levels indep in order to simulate full access to living areas of her home. Patient's Goals
[2019-01-26] MEDS ORDERED: HYDR-654 PO (10:51)
[2019-01-26 11:04] VITALS: BP 124/79
--- NOTE | 2019-01-26 23:13 | NUR ---
PHYSICAL THERAPY INFORMATION TRANSFER SHEET BED MOBILITY: Modified I/ AE TRANSFERS: Modified I/ AE GAIT: 250 ' with RW and Modified I/ AE Weightbearing Status: Weight bearing as marcia STAIRS: 4 stairs with rail on L) to ascend and CGA. Pt is not able to transport walker up/down stairs indep and thus will benefit from further home health rehab before she will be safe to attend out pt clinic. EXERCISES: see handout Verbalizes Needs: Yes Understands Directions Yes Cooperative: Yes Family Teaching: Yes Physical Therapy Comment:
== END 2019-01-26 12:40 | disposition home or self-care (01) | DRG 470 ==
LOC: OR 00:43 → MED 12:15
PROVIDERS: ADMIT Orthopaedic Surgery; ATTEND Orthopaedic Surgery
PROC: 3E0U33Z Introduction of Anti-inflammatory into Joints, Percutaneous Approach (ICD-10-PCS; 2019-01-23)
PROC: 0SRD0J9 Replacement of Left Knee Joint with Synthetic Substitute, Cemented, Open Approach (ICD-10-PCS; principal; 2019-01-23 08:19)
DX: M17.32 Unilateral post-traumatic osteoarthritis, left knee (principal); Z68.41 Body mass index [BMI] 40.0-44.9, adult; M06.9 Rheumatoid arthritis, unspecified; I49.9 Cardiac arrhythmia, unspecified; K22.70 Barrett's esophagus without dysplasia; M75.101 Unspecified rotator cuff tear or rupture of right shoulder, not specified as traumatic; E66.01 Morbid (severe) obesity due to excess calories; K21.9 Gastro-esophageal reflux disease without esophagitis; J43.9 Emphysema, unspecified; Z88.0 Allergy status to penicillin; Z90.710 Acquired absence of both cervix and uterus; Z90.49 Acquired absence of other specified parts of digestive tract; Z87.891 Personal history of nicotine dependence; Z96.651 Presence of right artificial knee joint
CPT/HCPCS: 36415; 82040; 82247; 82310; 82374; 82435; 82565; 82947; 84075; 84132; 84155; 84295; 84450; 84460; 84520; 85025; 85610; 86850; 86900; 86901; 97161; C1713; C1776; J0690; J1100; J2001; J2175; J2250; J2405; J2550; J2704; J3010; J3301; J3370; J3490; J7060; Q0163

== ENCOUNTER 2019-02-06 00:07 | Inpatient (IN) | payer BC ==
--- NOTE | 2019-02-05 17:43 | HISTORY AND PHYSICAL ---
DATE OF ADMISSION: February 06, 2019 CHIEF COMPLAINT Mireya is a 48-year old woman status post total knee arthroplasty two weeks ago. She has had persistent bloody drainage. Surgery is indicated to irrigate and debride the wound to make sure there is no deep retinacular disruption and to minimize risk of infection from persistent drainage. PAST MEDICAL HISTORY/PAST SURGICAL HISTORY/FAMILY HISTORY/REVIEW OF SYSTEMS Unchanged from the H and P from January. There have been no new medications. She remains off methotrexate for perioperative healing. PHYSICAL EXAMINATION GENERAL: Healthy female who appears stated age. HEENT: Normocephalic, atraumatic. NECK: Supple. LUNGS: Clear. HEART: Regular. ABDOMEN: Soft. ORTHOPEDIC EXAM Left knee has a curvilinear incision. There is bloody exudate from the curved areas of the incision. There is no erythema. There is no large palpable hematoma. There is moderate effusion. Knee motion is satisfactory. ASSESSMENT Left knee hematoma and persistent wound drainage, status post total knee arthroplasty. PLAN We discussed the options and patient agrees with my recommendation to proceed with irrigation and debridement of the wound. If this does involve retinacular disruption, we will do deep wound debridement and polyethylene liner exchange at the same setting. The nature of the procedure, risks and benefits, the anticipated rehab course reviewed as well as nonoperative alternatives. Risks of the procedure include, but are not limited to, persistent recurrent drainage, deep infection, need for additional surgery and other unforeseen. She wished to proceed. Signed permit placed in the chart. No guarantees given or implied. DANI
[~2019-02-06] VITALS: Ht 162.6 cm; Wt 112.5 kg
[2019-02-06] VITALS (12 sets, daily range): BP systolic 127–159; BP diastolic 66–88
[~2019-02-06 00:07] MED LIST changes: +DOCU-442 PO; +POLY17PO25 PO
[2019-02-06] MEDS: NORMOSOL R SOLN(*) 1000 ML BAG 1,000 ML IV PRN ×2 (08:00→10:18)
[2019-02-06] MEDS ORDERED: PROPOFOL EMUL(*) 10MG/ML 20 ML 20 ML ONE (08:18)
[2019-02-06] MEDS ORDERED: LIDOCAINE MPF 1% 5 ML VIAL ONE (08:18)
[2019-02-06] MEDS ORDERED: fentaNYL CITR 100 MCG/2 ML AMP ONE ×5 (08:18→13:30)
[2019-02-06] MEDS ORDERED: KETAMINE HCL-NS 50 MG/5 ML SYR ONE (08:18)
[2019-02-06] MEDS ORDERED: DEXAMETHASONE SOD PHOS 10MG/ML ONE (08:19)
[2019-02-06] MEDS ORDERED: ONDANSETRON 4 MG/2 ML VIAL ONE (08:19)
[2019-02-06] MEDS ORDERED: BUPIV/EPI 0.25% 1:200,000 50ML INFIL ONE (09:57)
[2019-02-06] MEDS ORDERED: LIDOCAINE/SOD BICARB 8.4% SYR ID ONE (10:00)
[2019-02-06] MEDS ORDERED: ACETAMINOPHEN 500 MG TAB PO ONE (10:00)
[2019-02-06] MEDS ORDERED: PREGABALIN 150 MG CAPSULE PO ONE (10:00)
[2019-02-06] MEDS ORDERED: MIDAZOLAM 2 MG/2 ML VIAL IVP PRN (10:00)
[2019-02-06] MEDS ORDERED: VANCOMYCIN 1 GM VIAL ONE (10:26)
[2019-02-06] MEDS ORDERED: TRANEXAMIC AC 1000 MG/10ML SDV 1,000 MG in DEXTROSE 5% 50 ML BAG 50 ML IV ONE (11:00)
[2019-02-06] MEDS ORDERED: ROPIVACAINE/EPI/CLONIDINE/KET 50 ML SYRINGE INJ ONE (11:00)
[2019-02-06] MEDS ORDERED: ceFAZolin(*) 2GM/D5W 50ML 50 ML IVPB ONE (11:30)
[2019-02-06] MEDS ORDERED: KETOROLAC 30 MG/ML VIAL ONE (11:56)
[2019-02-06] MEDS ORDERED: ACETAMINOPHEN(*)1000 MG/100 ML 100 ML IVPB ONE (13:09)
--- NOTE | 2019-02-06 13:15 | OPERATIVE REPORT 1 ---
EVENT DATE: February 06, 2019 SURGEON: Gamaliel Lopez MD ANESTHESIOLOGIST: Clay Kemp MD ANESTHESIA: General. WOOD SCALER: DANY Florez, IS/IT PROJECT MANAGER PREOPERATIVE DIAGNOSIS Left knee hematoma with persistent drainage and stiffness, status post knee replacement. POSTOPERATIVE DIAGNOSIS Left knee hematoma with persistent drainage and stiffness, status post knee replacement. PROCEDURE PERFORMED Irrigation and debridement of knee hematoma with reclosure of the wound and closed manipulation of the knee under anesthesia. ESTIMATED BLOOD LOSS Minimal. DRAINS None. SPECIMENS Hematoma swab sent for gram stain, culture and sensitivity. COMPLICATIONS None apparent. TOURNIQUET TIME Approximately 30 minutes. INDICATIONS Patient is status post total knee arthroplasty. This has been complicated by excessive bloody postoperative drainage. Evacuation and I and D of the hematoma is indicated at this time to minimize risks of a postoperative infection. Manipulation is also indicated to alleviate stiffness due to limited mobility from the drainage. DESCRIPTION OF PROCEDURE Patient was taken to the operating room, placed supine on the operating table. General anesthesia was induced. The old incision was opened and hematoma is evacuated. This was swabbed and 2 grams of Ancef were administered IV. Dissection was carried down to the retinacular closure, which is entirely intact. Hematoma appears to be confined to the subcutaneous tissue. This area was copiously lavaged with a 3L bag of saline and meticulous debridement performed, starting at the skin with removal of any marginal and devitalized skin edges, subcutaneous tissue and down to the deep fascia. This is thoroughly lavaged again with another 3L of saline and then sterile syringe and 18-gauge needle were used to aspirate the joint. Minimal amount of bloody fluid is evacuated. There is no undue deep swelling. Therefore, I elected not to open the retinacular layer or exchange the liner. The tourniquet was deflated and meticulous hemostasis was assured. The wound was irrigated with Aricept and then this was lavaged out again after sitting for a minute. Subsequently, dermis was closed with 3-0 Vicryl and the skin with 2-0 Nylon vertical mattress sutures with careful eversion of the skin edges. A custom Prineo negative pressure wound dressing is applied using manufacture recommended technique. Prior to applying this dressing, the knee is gently manipulated into flexion, breaking up adhesions. Full flexion and full extension are achievable without compromising the stability of the knee. After application of the wound dressing, the patient is awakened from Anesthesia and taken to the recovery room in stable condition, having tolerated the procedure well. PLAN Standard TKA rehab protocol, weightbearing as tolerated, early range of motion. The wound VAC is to be left undisturbed for seven days and then a wound check. MTDD
[2019-02-06] MEDS ORDERED: MAGNESIUM HYDROXIDE* 30ML UDCP PO PRN (14:05)
[2019-02-06] MEDS ORDERED: DIAZEPAM 5 MG TAB PO PRN (14:05)
[2019-02-06] MEDS ORDERED: FLUSH 10 ML SYR IVP PRN (14:05)
[2019-02-06] MEDS ORDERED: BENZOCAINE/MENTHOL 1 EACH LOZG PO PRN (14:05)
[2019-02-06] MEDS ORDERED: PROMETHAZINE 25 MG/ML 1 ML AMP IVP PRN (14:05)
[2019-02-06] MEDS ORDERED: ZOLPIDEM TARTRATE 5 MG TAB PO PRN (14:05)
[2019-02-06] MEDS ORDERED: MORPHINE 2 MG/ML SYR IVP PRN (14:05)
[2019-02-06] MEDS ORDERED: diphenhydrAMINE 50 MG/ML VIAL IVP PRN (14:05)
[2019-02-06] MEDS ORDERED: ACETAMINOPHEN 325 MG TAB PO PRN (14:05)
[2019-02-06] MEDS ORDERED: BISACODYL 10 MG SUPP PR PRN (14:05)
[2019-02-06] MEDS ORDERED: NORMOSOL R SOLN(*) 1000 ML BAG 1,000 ML IV PRN (14:05)
[2019-02-06] MEDS ORDERED: diphenhydrAMINE 25 MG CAP PO PRN (14:05)
[2019-02-06] MEDS ORDERED: DOCUSATE SODIUM 100 MG CAP PO PRN (14:40)
[2019-02-06] MEDS: APAP/HYDROCODONE 325/7.5 TAB PO PRN ×2 (15:03→19:53)
--- NOTE | 2019-02-06 15:05 | Hospitalist Consultation ---
History of Present Illness Requesting Physician Dr. Lopez Reason for Consult Medical Management of Comorbidities Chief Complaint s/p incision and drainage of left TKA History of Present Illness She was admitted s/p incision and drainage of left TKA. It is reported the surgery went well and without complication. History Problems: (1) Arrhythmia Status: Chronic (2) RA (rheumatoid arthritis) Status: Chronic (3) Santoro's esophagus Status: Chronic Home Meds Active Scripts Aspirin (ASPIRIN) 325 Mg Tablet, 325 MG PO DAILY, #30 TAB Prov:RAS ERNST CLINICAL DENTAL TECHNICIAN 01/26/19 Reported Medications Docusate Sodium (DULCOLAX STOOL SOFTENER) 100 Mg Capsule, 100 MG PO DAILY PRN for CONSTIPATION, CAPSULE 02/01/19 Polyethylene Glycol 3350 (MIRALAX) 17 Gm Powd.pack, 17 GM PO DAILY PRN for CONSTIPATION, PKT 02/01/19 Hydrocodone Bit/Acetaminophen (NORCO 7.5-325 TABLET) 1 Each Tablet, 1-2 EACH PO Q4-6H PRN for PAIN 01/26/19 Celecoxib (CELEBREX) 200 Mg Capsule, 200 MG PO BID, CAPSULE 01/17/19 Cyclobenzaprine Hcl (CYCLOBENZAPRINE HCL) 10 Mg Tablet, 10 MG PO TID PRN for SPASMS, #60 TAB 11/17/18 Metoprolol Succinate (METOPROLOL SUCCINATE) Unknown Strength Tab.er.24h, 25 MG PO QDAY, TAB 11/08/18 Varenicline Tartrate (CHANTIX) 1 Mg Tablet, 1 MG PO BID 11/08/18 Omeprazole (OMEPRAZOLE) 40 Mg Capsule.dr, 40 MG PO QDAY, CAP 09/07/17 Allergies: Coded Allergies: No Known Drug Allergies (Unverified , 09/07/17) Hx Smoking: Yes (1PPD X35 YEARS ) Smoking Status: Former Smoker When Quit Tobacco?: 01/18/19 Caffeine Intake: Coffee, Soda Caffeine/Cups Per Day: 3-4 32 OZ/DAY Hx Alcohol Use: Yes Hx Substance Use Disorder: Yes (CURRENT CBD GUMMIES AND THC USE. FORMER METH USE QUIT 1988) Social Drug Use: Currently Social Drugs: Marijuana, Meth Amount Of Social Drug/s Used: CBD AND THC USE TO HELP WITH PAIN OCCATIONALLY 2/MONTH Review of Systems All Systems Reviewed/Normal: Yes, Except as Noted Exam Vital Signs Vital Signs Date Time Temp Pulse Resp B/P (MAP) Pulse Ox O2 Delivery O2 Flow Rate FiO2 02/06/19 14:30 97.6 89 14 159/88 (111) 98 Nasal Cannula 2.0 General Appearance: Alert, Awake, No Acute Distress, Afebrile Neuro: No Gross deficits Cardiovascular: Regular Rate and Rhythm Respiratory: No Respiratory Distress, Clear to Auscultation Psych: Alert & Oriented X3, Appropriate Mood & Affect Assessment and Plan Problems: (1) Status post incision and drainage Status: Acute Assessment & Plan: Followed by Dr. Lopez. She will resume her Aspirin for DVT prophylaxis. (2) Santoro's esophagus Status: Chronic Assessment & Plan: Continue chronic PPI. (3) Arrhythmia Status: Chronic Assessment & Plan: She is on chronic treatment with Metoprolol. This has been restarted with hold parameters. (4) RA (rheumatoid arthritis) Status: Chronic Assessment & Plan: Methotrexate on hold for surgeries. (5) Smoking trying to quit Status: Chronic Assessment & Plan: Continue Chantix. Venous Thromboembolism Antithrombotics Is Pt On Any Antithrombotics?: No RAS ERNST February 06, 2019 15:05
[2019-02-06] MEDS ORDERED: NS(*) 0.9% 250 ML BAG 250 ML ONE (17:25)
--- NOTE | 2019-02-06 18:06 | NUR ---
Physical Therapy Impression PT eval completed followed by ambulation and platform step trng in hallway. Pt is modified indep with bed mobility/transfers and SBA for ambulation and stairs. Will address stairs in sequence tomorrow am prior to anticipated d/c. Pt instructed in use of wound vac and how to call [employer] for resource regarding any alarms etc. Physical Therapy Goals 1. Pt to be modified indep with bed mobility and sup<>sit trnsfrs 2. Pt to be modified indep with sit to/from stand transfers 3. Pt to be modified indep to ambulate x 200' with FWW 4. Pt to marcia up/down 8 steps with rail and SBA/Modified indep Patient's Goals
[2019-02-06] MEDS: VARENICLINE 1 MG TAB PO SCH (18:20)
[2019-02-06] MEDS: CELECOXIB 200 MG CAP PO SCH (18:20)
[2019-02-06] MEDS: ceFAZolin(*) 1 GM VIAL 1 GM in NS(*) 0.9% 100 ML MINI-BAG 100 ML IVPB SCH (18:21)
[2019-02-07] MEDS: ceFAZolin(*) 1 GM VIAL 1 GM in NS(*) 0.9% 100 ML MINI-BAG 100 ML IVPB SCH ×2 (01:28→09:15)
[2019-02-07] MEDS: APAP/HYDROCODONE 325/7.5 TAB PO PRN ×3 (01:37→09:51)
[2019-02-07 03:13] VITALS: BP 117/73
[2019-02-07] MEDS: VARENICLINE 1 MG TAB PO SCH (05:42)
[2019-02-07] MEDS ORDERED: PANTOPRAZOLE SOD 40 MG TABEC PO SCH (06:00)
[2019-02-07 07:28] VITALS: BP 123/80
--- NOTE | 2019-02-07 08:23 | NUR ---
Physical Therapy Impression PT goals met and ready for d/c home to out pt therapy with assist from daughter. Physical Therapy Goals 1. Pt to be modified indep with bed mobility and sup<>sit trnsfrs 2. Pt to be modified indep with sit to/from stand transfers 3. Pt to be modified indep to ambulate x 200' with FWW 4. Pt to marcia up/down 8 steps with rail and SBA/Modified indep Patient's Goals
[2019-02-07] MEDS ORDERED: METOPROLOL SUCC XL 25 MG TABCR PO SCH ×2 (09:00→21:00)
[2019-02-07] MEDS ORDERED: ASPIRIN 325 MG TAB PO SCH (09:00)
[2019-02-07] MEDS: CELECOXIB 200 MG CAP PO SCH (09:15)
--- NOTE | 2019-02-07 10:17 | Hospitalist Progress Note ---
Subjective Progress Notes Subjective She was admitted s/p I & D of her knee. She has no complaints this morning. She would like to go home today. Patient Complains of: Cardiovascular: No: Chest Pain Respiratory: No: Shortness of Breath Physical Exam Vital Signs Date Time Temp Pulse Resp B/P (MAP) Pulse Ox O2 Delivery O2 Flow Rate FiO2 02/07/19 07:36 92 Room Air 02/07/19 07:28 97.6 92 18 123/80 (94) 02/07/19 03:13 0.5 Intake and Output 02/07/19 01:00 Intake Total 4740 ml Balance 4740 ml Intake Oral 640 ml IV Total 4100 ml # Voids 4 General Appearance: Alert, Awake, No Acute Distress, Afebrile Neuro: No Gross deficits Cardiovascular: Regular Rate and Rhythm Respiratory: No Respiratory Distress, Clear to Auscultation GI: Soft and Non-Tender Psych: Alert & Oriented X3, Appropriate Mood & Affect Assessment and Plan Problems: (1) Status post incision and drainage Status: Acute Assessment & Plan: Followed by Dr. Lopez. She will resume her Aspirin for DVT prophylaxis. (2) Santoro's esophagus Status: Chronic Assessment & Plan: Continue chronic PPI. (3) Arrhythmia Status: Chronic Assessment & Plan: She is on chronic treatment with Metoprolol. This has been restarted with hold parameters. (4) RA (rheumatoid arthritis) Status: Chronic Assessment & Plan: Methotrexate on hold for surgeries. (5) Smoking trying to quit Status: Chronic Assessment & Plan: Continue Chantix. Exam Sepsis Risk: No Definite Risk RAS ERNSTP February 07, 2019 10:16
[2019-02-07 10:35] VITALS: Ht 162.6 cm; Wt 112.5 kg
== END 2019-02-07 10:00 | disposition home or self-care (01) | DRG 909 ==
LOC: OR 00:07 → INTOOBSV 14:29 → MED 14:29 → OBSVTOIN 14:29
PROVIDERS: ADMIT Orthopaedic Surgery; ATTEND Orthopaedic Surgery
PROC: 0S9D0ZZ Drainage of Left Knee Joint, Open Approach (ICD-10-PCS; principal; 2019-02-06 10:22)
PROC: 0JDP0ZZ Extraction of Left Lower Leg Subcutaneous Tissue and Fascia, Open Approach (ICD-10-PCS; 2019-02-06 10:22)
DX: M96.840 Postprocedural hematoma of a musculoskeletal structure following a musculoskeletal system procedure (principal); M06.9 Rheumatoid arthritis, unspecified; K21.9 Gastro-esophageal reflux disease without esophagitis; J44.9 Chronic obstructive pulmonary disease, unspecified; K22.70 Barrett's esophagus without dysplasia; I49.9 Cardiac arrhythmia, unspecified; F17.210 Nicotine dependence, cigarettes, uncomplicated
CPT/HCPCS: 76942; 87071; 87073; 87077; 87186; 87205; 97161; J0131; J0690; J1100; J1885; J2001; J2250; J2405; J2704; J3010; J3370; J3490; J7050

== ENCOUNTER 2019-02-28 00:17 | Inpatient (IN) | payer BC ==
[2019-02-07 10:35] VITALS: Ht 162.6 cm; Wt 110.7 kg
[~2019-02-28] VITALS: Ht 162.6 cm; Wt 110.7 kg
[2019-02-28] VITALS (10 sets, daily range): BP systolic 107–134; BP diastolic 60–83
[~2019-02-28 00:17] MED LIST changes: +CITA-145 PO; +ERTA1VIA IVPB; +HYDR25CA13 PO
[2019-02-28] MEDS: LIDOCAINE/SOD BICARB 8.4% SYR ID ONE ×2 (12:00→12:08)
[2019-02-28] MEDS ORDERED: ACETAMINOPHEN 500 MG TAB PO ONE (12:00)
[2019-02-28] MEDS ORDERED: NORMOSOL R SOLN(*) 1000 ML BAG 1,000 ML IV PRN ×2 (12:00→18:10)
[2019-02-28] MEDS ORDERED: ROPIVACAINE/EPI/CLONIDINE/KET 50 ML SYRINGE INJ ONE (12:00)
[2019-02-28] MEDS ORDERED: PREGABALIN 150 MG CAPSULE PO ONE (12:00)
[2019-02-28] MEDS ORDERED: ceFAZolin(*) 2GM/D5W 50ML 50 ML IVPB ONE (12:00)
[2019-02-28] MEDS ORDERED: MIDAZOLAM 2 MG/2 ML VIAL IVP PRN (12:00)
[2019-02-28 12:28] LABS: INR 1.04
[2019-02-28] MEDS ORDERED: fentaNYL CITR 100 MCG/2 ML AMP ONE ×2 (12:35→18:30)
[2019-02-28] MEDS ORDERED: ONDANSETRON 4 MG/2 ML VIAL ONE (12:36)
[2019-02-28] MEDS ORDERED: LIDOCAINE MPF 1% 5 ML VIAL ONE (12:36)
[2019-02-28] MEDS ORDERED: PROPOFOL EMUL(*) 10MG/ML 20 ML 20 ML ONE (12:36)
[2019-02-28] MEDS ORDERED: DEXAMETHASONE SOD PHOS 10MG/ML ONE (12:36)
[2019-02-28] MEDS ORDERED: TRANEXAMIC AC 1000 MG/10ML SDV 1,000 MG in DEXTROSE 5% 50 ML BAG 50 ML IV ONE (13:10)
--- NOTE | 2019-02-28 13:27 | LEVENE H&P ---
DATE OF ADMISSION: February 28, 2019 IDENTIFICATION/CHIEF COMPLAINT The patient is a 48-year-old woman with a chief complaint of left knee drainage and evidence of infection after knee arthroplasty. HISTORY OF PRESENT ILLNESS Patient underwent total knee arthroplasty five weeks ago. This was complicated by a wound hematoma. Due to persistent drainage, she underwent irrigation and debridement at the two week postop marylu, at which time there was no advert evidence of infection and the retinaculum and deep layer closed. Her hematoma did grow Morganella species with Infectious Disease consultation. She was placed on oral antibiotics but her clinical condition worsened after the I and D and she now has grossly purulent drainage, overt evidence of infection and has been placed on IV Invanz per Infectious Disease. Explantation and irrigation and debridement are indicated to eradicate infection. PAST MEDICAL HISTORY/PAST SURGICAL HISTORY/FAMILY HISTORY/SOCIAL HISTORY Unchanged from the previously well-documented history and physical from her two week postop exam. She does have rheumatoid arthritis, remote history of smoking; none presently. ALLERGIES Gabapentin. CURRENT MEDICATIONS 1. Metoprolol 25 mg p.o. every day. 2. Cyclobenzaprine as needed for spasm. 3. Chantix 1 mg p.o. b.i.d. 4. Omeprazole 40 mg p.o. every day. FAMILY HISTORY Noncontributory. SOCIAL HISTORY Notable for remote history of smoking, recently quit. She drinks alcohol on occasion socially, denies abuse. REVIEW OF SYSTEMS Negative. PHYSICAL EXAMINATION GENERAL: Healthy female. HEENT: Normocephalic, atraumatic. LUNGS: Clear. ORTHOPEDIC EXAMINATION The left knee has drainage from the lower portion of the incision, which is seropurulent. There is some mild erythema. The knee is stiff. Extensor function is intact. Gross stability is good. Calves nontender. Neurovascular function is intact. Radiographs are unremarkable. 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 PLAN After discussion with the Infectious Disease inbound sales consultant, Dr. Bridges, it is felt that ongoing conservative care is unlikely to lead to any resolution. We will proceed with irrigation, debridement and explantation of the components. We will place an antibiotic loaded cement spacer and ongoing IV antibiotic treatment. Subsequently, after the infection has been eradicated, we will return in a second stage for reimplantation and revision knee arthroplasty. Mushtaq understands the plan, risks, benefits and alternatives and would like to proceed. Risks of the procedure include, but are not limited to, , major medical or anesthetic complication, infection, neurovascular injury, further bone loss or fracture, instability, stiffness, scarring, persistent or worsening infection, need for additional surgery expected and other unforeseen. She understands and wishes to proceed. A signed permit is placed in the chart. No guarantees are given or implied. DANI
[2019-02-28] MEDS ORDERED: VANCOMYCIN 1 GM VIAL ONE (14:08)
[2019-02-28] MEDS ORDERED: ePHEDrine 25 MG/5 ML DISP.SYR IVP ONE (14:32)
[2019-02-28] MEDS ORDERED: LACTATED RINGER 3000 ML BAG IR ONE (17:38)
[2019-02-28] MEDS ORDERED: BENZOCAINE/MENTHOL 1 EACH LOZG PO PRN (18:10)
[2019-02-28] MEDS ORDERED: MAGNESIUM HYDROXIDE* 30ML UDCP PO PRN (18:10)
[2019-02-28] MEDS ORDERED: ACETAMINOPHEN 325 MG TAB PO PRN (18:10)
[2019-02-28] MEDS ORDERED: ZOLPIDEM TARTRATE 5 MG TAB PO PRN (18:10)
[2019-02-28] MEDS ORDERED: FLUSH 10 ML SYR IVP PRN (18:10)
[2019-02-28] MEDS ORDERED: diphenhydrAMINE 25 MG CAP PO PRN (18:10)
[2019-02-28] MEDS ORDERED: PROMETHAZINE 25 MG/ML 1 ML AMP IVP PRN (18:10)
[2019-02-28] MEDS ORDERED: BISACODYL 10 MG SUPP PR PRN (18:10)
[2019-02-28] MEDS ORDERED: diphenhydrAMINE 50 MG/ML VIAL IVP PRN (18:10)
--- NOTE | 2019-02-28 20:00 | RADIOLOGY IMAGING REPORT ---
[place] [facility] [place] Mireya Lovelace : 1970 MR: [id number] V: [id number] EXAM DATE: ORDERING PHYSICIAN: CHINO RUTLEDGE TECHNOLOGIST: Location: [facility] [place] Patient: Mireya Lovelace : 1970 Visit/Account:[id number] Date of Sevice: 02/28/2019 Examination: KNEE LIMITED LEFT Comparison: 01/23/2019 and earlier. History: POSTOP LEFT KNEE ANTIBIOTIC SPACER IMPLANT Findings: The arthroplasty hardware has been removed and an antibiotic spacer has been placed. No ac twenty-nine palms fracture or osseous destruction. Expected postoperative change in the soft tissues. IMPRESSION: Left knee arthroplasty hardware removal with placement of an antibiotic spacer. Report Dictated By: Austen Francisco MD at 02/28/2019 7:54 PM Report E-Signed By: Austen Francisco MD at 02/28/2019 7:56 PM WSN:[id number]
--- NOTE | 2019-02-28 20:09 | Hospitalist Progress Note ---
Subjective Progress Notes Subjective Patient seen post-op. She is well known to our service from recent admissions. She is admitted today following left knee hardware removal, washout, antibiotic spacer placement. At present she reports doing well. No CP/SOB/nausea. Physical Exam Vital Signs Date Time Temp Pulse Resp B/P (MAP) Pulse Ox O2 Delivery O2 Flow Rate FiO2 02/28/19 19:47 98.0 12 134/72 (92) 02/28/19 18:45 83 96 02/28/19 12:00 Room Air General Appearance: Alert, Awake Cardiovascular: Regular Rate and Rhythm Respiratory: Clear to Auscultation Assessment and Plan Problems: (1) Arrhythmia Status: Chronic Assessment & Plan: She has chronic tachycardia of unknown etiology. She has been managed with metoprolol ext release 25mg daily. No changes. (2) Santoro's esophagus Status: Chronic Assessment & Plan: Will continue her PPI therapy - Protonix 40mg daily while here (omeprazole at home). (3) Status post left knee replacement Status: Acute Assessment & Plan: She has had hardware removal, washout, antibiotic spacers placed. She appears to be doing well. She will be on aspirin 325mg daily for DVT prophylaxis as per Dr. Lopez. She has also been started on ertapenem 1gm IV daily. PICC line is in place. (4) Smoking trying to quit Status: Chronic Assessment & Plan: Continue her Chantix 1mg PO BID. DEBBY MCBRIDE MD February 28, 2019 20:09
[2019-02-28] MEDS: MORPHINE 2 MG/ML SYR IVP PRN (20:50)
[2019-02-28] MEDS: ERTAPENEM(*) 1 GM VIAL 1 GM in NS(*) 0.9% 100 ML MINI-BAG 100 ML IVPB SCH (20:51)
[2019-02-28] MEDS: METOPROLOL SUCC XL 25 MG TABCR PO SCH ×2 (20:51→21:20)
--- NOTE | 2019-02-28 21:25 | OPERATIVE REPORT 1 ---
EVENT DATE: February 28, 2019 SURGEON: Gamaliel Lopez MD ANESTHESIOLOGIST: Edilberto Yao MD ANESTHESIA: Spinal. SYSTEM ANALYST: Sathish Vargsa PA-C PREOPERATIVE DIAGNOSIS Infected left total knee arthroplasty. POSTOPERATIVE DIAGNOSIS Infected left total knee arthroplasty. PROCEDURES PERFORMED 1. Irrigation and debridement of left knee infection. 2. Explantation of all components and removal of cement. 3. Placement of antibiotic-loaded cement Exactech spacer. ESTIMATED BLOOD LOSS 500 mL. DRAINS None. SPECIMENS Deep cultures sent for aerobic, anaerobic, stat Gram stain, and sensitivities. COMPLICATIONS None apparent. IMPLANTS USED Exactech medium size femoral and tibial implants with antibiotic-loaded cement. TOURNIQUET TIME 106 minutes. INDICATIONS Mushtaq is a 48-year-old woman who is status post knee arthroplasty. She developed hematoma and was taken back for I and D two weeks postop. It appeared to be a superficial hematoma. This did grow Morganella morganii. She was treated with infectious disease consultation with oral antibiotics, transitioned to Invanz, but her clinical condition has worsened. Surgery is indicated to eradicate infection. DESCRIPTION OF PROCEDURE Patient is taken to the operating room and placed supine on the operating table. Spinal block is placed by the anesthesiologist. She is already on Invanz IV. Left lower extremity is prepped and draped in the usual sterile fashion for orthopedic surgery. The old incision is opened and extended a centimeter proximally and distally, and dissection is carried down through the skin and into the subcutaneous pocket. Seropurulent material is encountered, and this was copiously lavaged out. Extensive granulation tissue is noted. There is still no obvious rent in the retinaculum. A curette is used to debride all surfaces. The skin edges are freshened up by removing a millimeter to two on each side with a fresh 10 blade, and all devitalized fat and tissue are removed. The superficial space is irrigated with 6 L of saline, and then the deep retinaculum was opened along the prior suture line with a medial parapatellar arthrotomy. The knee is quite stiff, tissues edematous and thickened. A subperiosteal medial release is performed to allow the knee to be flexed. The patella is subluxed as this is not able to be everted, and the joint is exposed. There is seropurulent material deep, and this is swabbed and sent for stat Gram stain, culture, and sensitivity, and then the joint provisionally lavaged. Grossly devitalized tissue is debrided, taking great care to protect the extension mechanism and the medial collateral ligament. The bone cement implant interface is exposed, and a high-speed saw is used to resect the cement at the cement-implant interface. This is performed to preserve bone along all exposed surfaces on the femur first after removal of the polyethylene insert from the tibia. This is then impacted and distracted, and the implant comes off the femur fairly easily with no substantial loss of peripheral cortical bone and minimal loss of cancellous bone. Attention is turned to the tibia. An identical procedure is used with the flexible osteotomes and the high-speed oscillating saw to resect the cement interface at the cement-implant junction. This is then impacted and distracted and, again, this component is removed fairly easily with minimal bone loss, a bit more central metaphyseal bone loss around the fin, no major peripheral bone loss, leaving a nice, contained defect. Additional cement is then removed with a high-speed travon and curette. The patellar component is resected at the cement-implant interface with a high-speed oscillating saw, and then the studs are resected with a high-speed travon along the cement mantle. All surfaces are copiously lavaged again with 6 L of saline. Additional cement is picked from the wound, and posterior recesses are curetted. All synovial linings are debrided, and then the joint is lavaged again. The trial components for the Exactech are sized and compared to the previous implants, and the medium is selected. Trial implants are inserted, and the knee can easily be brought to full extension. The actual implants are opened, and a mix of antibiotic-loaded blue cement is mixed. This is allowed to reach a high level of viscosity. Then, the components are inserted, and the knee is held in extension to hold these loosely in position, trying to prevent the cement from interdigitating into the bone just holding the components loosely. A small shellie is made to lift the patella off the anterior aspect of the femur and is also left in place. When the cement is fully polymerized, the knee is slightly flexed and then closed this with 0 PDS for the retinaculum, which is tight, followed by closure of the skin with 2-0 nylon vertical and simple sutures. Xeroform is applied for a dry, sterile dressing and compression wrap. Patient is awakened from anesthesia and taken to the recovery room in stable condition having tolerated the procedure well. PLAN IV antibiotics per Infectious Disease recommendations. Touch-down weightbearing. Early mobilization with a knee immobilizer, and then reimplantation when the infection has been adequately eradicated. MTDD
[2019-02-28] MEDS: APAP/HYDROCODONE 325/7.5 TAB PO PRN (23:16)
[2019-03-01] VITALS (12 sets, daily range): BP systolic 100–121; BP diastolic 55–73
[2019-03-01] MEDS: MORPHINE 2 MG/ML SYR IVP PRN (01:04)
[2019-03-01] MEDS: APAP/HYDROCODONE 325/7.5 TAB PO PRN ×4 (03:43→18:07)
[2019-03-01] MEDS: VARENICLINE 1 MG TAB PO SCH ×2 (05:33→18:07)
[2019-03-01] MEDS ORDERED: ALTEPLASE RECOMB 2 MG VIAL IVP ONE (05:45)
[2019-03-01] MEDS: PANTOPRAZOLE SOD 40 MG TABEC PO SCH (05:53)
[2019-03-01 06:12] LABS: PLATELET COUNT, AUTOMATED 577 K/uL (150-450)
[2019-03-01] MEDS: CELECOXIB 200 MG CAP PO SCH ×2 (08:38→17:58)
[2019-03-01] MEDS: ASPIRIN 325 MG TAB PO SCH (08:38)
--- NOTE | 2019-03-01 09:08 | Hospitalist Progress Note ---
Subjective Progress Notes Subjective She was admitted with septic knee. She had no acute events overnight. Patient Complains of: Cardiovascular: No: Chest Pain Respiratory: No: Shortness of Breath Physical Exam Vital Signs Date Time Temp Pulse Resp B/P (MAP) Pulse Ox O2 Delivery O2 Flow Rate FiO2 03/01/19 07:03 97.7 105 18 100/62 (75) 95 Nasal Cannula 0.5 Intake and Output 03/01/19 01:00 Intake Total 3060 ml Output Total 200 ml Balance 2860 ml Intake Oral 760 ml IV Total 2300 ml Output Estimated Blood Loss 200 ml # Voids 1 General Appearance: Alert, Awake, No Acute Distress, Afebrile Neuro: No Gross deficits Cardiovascular: Regular Rate and Rhythm Respiratory: No Respiratory Distress, Clear to Auscultation GI: Soft and Non-Tender Extremities: Warm, Perfused Integumentary: Other (appears pale) Psych: Alert & Oriented X3, Appropriate Mood & Affect Result Diagram: 03/01/19 0530 Assessment and Plan Problems: (1) Status post left knee replacement Status: Acute Assessment & Plan: She has had hardware removal, washout, antibiotic spacers placed. She appears to be doing well. She will be on aspirin 325mg daily for DVT prophylaxis as per Dr. Lopez. She has also been started on ertapenem 1gm IV daily. PICC line is in place. She will receive 2 units blood transfusion today. (2) Anemia Status: Acute Assessment & Plan: Her hemoglobin s/p knee hardware removal is 7.1. She will receive 2 units blood transfusion today. Anemia likely secondary to blood loss from surgery. (3) Arrhythmia Status: Chronic Assessment & Plan: She has chronic tachycardia of unknown etiology. She has been managed with metoprolol ext release 25mg daily. No changes. (4) Santoro's esophagus Status: Chronic Assessment & Plan: Will continue her PPI therapy - Protonix 40mg daily while here (omeprazole at home). (5) Smoking trying to quit Status: Chronic Assessment & Plan: Continue her Chantix 1mg PO BID. (6) Blood loss anemia Exam Sepsis Risk: No Definite Risk RAS ERNST DIRECTOR OF MARKET ANALYSIS March 01, 2019 09:07
[2019-03-01] MEDS ORDERED: NS(*) 0.9% 250 ML BAG 250 ML ONE (10:18)
[2019-03-01] MEDS: DIAZEPAM 5 MG TAB PO PRN ×2 (12:10→20:38)
--- NOTE | 2019-03-01 12:20 | Medical Nutrition Therapy ---
Nutrition Anthropometrics Height (Inches): 64.00 Height (Calculated Centimeters: 162.486805 Weight (Pounds): 244 Weight (Calculated Kilograms): 110.677 BMI: 41.9 Jacob Nutrition Score: Adequate Jacob Nutrition Risk Score: 18 Dietary Referral Nutrition Risk Factors: Non-Healing Wound Nutrition Risk Comment: Physical Findings Physical Appearance: Morbidly Obese 40+ Skin Appearance Skin Appearance: Edema Edema Location Modifier: Left Edema Location: Leg Type of Edema: Non-Pitting Degree of Edema: Gastrointestinal Symptoms GI Symtoms: Nausea Tube Present: Bowel Sounds: Recent Bowel Pattern: Stool Characteristics: Nutrition/Food History No Significant Nutr. HX Good Nutritional Diagnosis Nutritional Risk Acuity 4: Good Appetite Past Medical History: Hx of arthritis, barrets esophogus, arrhythmia, marijuana, meth, smoking. Nutritional Acuity: 3-Mild Nutrition Diagnosis: Over-weight/Obesity Nutrition Etiology: Inappropriate Food Choice Energy Requirement: 2218 (20kcal/kg) Protein Requirement: 110 (1 kcal/kg) Fluid Requirement: 2218 (1kcal/mL) Diet Type: Regular Nutrition Intervention: Cont diet as ordered Nutrition Monitoring & Eval Nutrition Goals: Eat 75-100% Meal Nutrition Follow-Up: Good Intake RD Patient Assessment Time: [address] Assessment Type: RD Assessment Patient Nutrition Acuity: 3-Mild Follow Up Date: Mar 06, 2019 Nutritional Comment: Continue to monitor intake pt has increased protein requirements for healing. MERVIN ANDINO March 01, 2019 12:12
--- NOTE | 2019-03-01 17:36 | NUR ---
Physical Therapy Impression PT eval completed. Pt able to verbalize understanding of toe touch weight bearing (specifically no greater than 30 lbs per MD order) and use of immobilizer for ambulation. Pt tolerated ambulation with FWW to/from BR with this pattern and experienced one loss of balance which required Min assist from PT to prevent increased weight on L) LE. Pt returned to W/C with L) LE elevated and released per her nurse to mobilize indep while seated in W/C. Pt to have assistance for safety with all transfers and gait. O2 sats at 95% and HR at 98bpm on room air after therapy completed. Due to high level of indep required to transition home safely, PT recommends long-term rehab to address safety and gentle progression with strength and balance while maintaining limited TTWB precaution, until next surgery is planned to replace TKA components after IV abx is completed. Physical Therapy Goals In order to return home safely: 1. Pt to be modified indep with bed mobility and supine to/from sit trnsfrs 2. Pt to be modified indep with sit to/from stand transfer 3. Pt to ambulate with limited TTWB on L) LE using FWW x 100' 4. Pt to complete up/down 15 steps with rail and modified indep while negotiating the walker up/down various levels indep in order to simulate full access to living areas of her home while maintaining limited weight bearing precaution. Patient's Goals
[2019-03-01] MEDS: ERTAPENEM(*) 1 GM VIAL 1 GM in NS(*) 0.9% 100 ML MINI-BAG 100 ML IVPB SCH (20:41)
[2019-03-01] MEDS ORDERED: METOPROLOL SUCC XL 25 MG TABCR PO SCH (21:00)
[2019-03-02] VITALS (8 sets, daily range): BP systolic 86–126; BP diastolic 0–69
[2019-03-02] MEDS: APAP/HYDROCODONE 325/7.5 TAB PO PRN ×6 (00:31→23:38)
[2019-03-02] MEDS: DIAZEPAM 5 MG TAB PO PRN ×3 (03:53→19:37)
[2019-03-02] MEDS: PANTOPRAZOLE SOD 40 MG TABEC PO SCH (05:33)
[2019-03-02] MEDS: VARENICLINE 1 MG TAB PO SCH ×2 (05:33→17:20)
[2019-03-02 06:23] LABS: PLATELET COUNT, AUTOMATED 505 K/uL (150-450)
--- NOTE | 2019-03-02 09:09 | Antimicrobial Stewardship ---
Antimicrobial Time Out Antimicrobial Stewardship MD Service: Other (Orthopedic surgeon, Dr Lopez.) Indications: Other (Septic knee post arthroplasty) Antimicrobial Used Ancef 1 gm IV times 1 dose and then changed to Invanz 1 gm IV q24 hours. She was treated with an oral antibiotic to treat a hematoma that grew Morganella morganii, without improvement, prior to hospitalization. Start Date: February 28, 2019 Culture Results: Yes (Culture results from knee are still pending.) Eligible for PO Conversion Eligable for PO Conversion: CARROLL Silva March 02, 2019 09:09
[2019-03-02] MEDS: ASPIRIN 325 MG TAB PO SCH (09:47)
[2019-03-02] MEDS: CELECOXIB 200 MG CAP PO SCH ×2 (09:47→17:20)
--- NOTE | 2019-03-02 09:48 | Hospitalist Progress Note ---
Subjective Progress Notes Subjective She was admitted with septic knee. She had no acute events overnight. Patient Complains of: Cardiovascular: No: Chest Pain Respiratory: No: Shortness of Breath Physical Exam Vital Signs Date Time Temp Pulse Resp B/P (MAP) Pulse Ox O2 Delivery O2 Flow Rate FiO2 03/02/19 06:51 98.1 82 16 101/64 (76) 97 Nasal Cannula 1.0 Intake and Output 03/02/19 07:00 Intake Total 1762 ml Balance 1762 ml Intake Oral 1262 ml Blood Product 500 ml # Voids 3 General Appearance: Alert, Awake, No Acute Distress, Afebrile Neuro: No Gross deficits Cardiovascular: Regular Rate and Rhythm Respiratory: No Respiratory Distress, Clear to Auscultation GI: Soft and Non-Tender Psych: Alert & Oriented X3, Appropriate Mood & Affect Result Diagram: 03/02/19 0524 Assessment and Plan Problems: (1) Status post left knee replacement Status: Acute Assessment & Plan: She has had hardware removal, washout, antibiotic spacers placed. She appears to be doing well. She will be on aspirin 325mg daily for DVT prophylaxis as per Dr. Lopez. She has also been started on ertapenem 1gm IV daily. PICC line is in place. (2) Anemia Status: Acute Assessment & Plan: Her hemoglobin s/p knee hardware removal is 7.1. She received 2 units blood transfusion 03/01. Anemia likely secondary to blood loss from surgery. Hgb 8.7 today. Continue to monitor. (3) Arrhythmia Status: Chronic Assessment & Plan: She has chronic tachycardia of unknown etiology. She has been managed with metoprolol ext release 25mg daily. No changes. (4) Santoro's esophagus Status: Chronic Assessment & Plan: Will continue her PPI therapy - Protonix 40mg daily while here (omeprazole at home). (5) Smoking trying to quit Status: Chronic Assessment & Plan: Continue her Chantix 1mg PO BID. Exam Sepsis Risk: Sepsis Risk RAS ERNST March 02, 2019 09:48
--- NOTE | 2019-03-02 12:29 | NUR ---
Physical Therapy Impression Pt demonstrates good compliance with PWB during transfers and ambulation. Recommend continued subacute rehab to address functional mobility including stair negotiation with PWB. Physical Therapy Goals In order to return home safely: 1. Pt to be modified indep with bed mobility and supine to/from sit trnsfrs 2. Pt to be modified indep with sit to/from stand transfer 3. Pt to ambulate with limited TTWB on L) LE using FWW x 100' 4. Pt to complete up/down 15 steps with rail and modified indep while negotiating the walker up/down various levels indep in order to simulate full access to living areas of her home while maintaining limited weight bearing precaution. Patient's Goals
[2019-03-02] MEDS: METOPROLOL SUCC XL 25 MG TABCR PO SCH (17:20)
[2019-03-02] MEDS: ERTAPENEM(*) 1 GM VIAL 1 GM in NS(*) 0.9% 100 ML MINI-BAG 100 ML IVPB SCH (21:11)
[2019-03-03] MEDS: DIAZEPAM 5 MG TAB PO PRN ×4 (01:40→21:46)
[2019-03-03] MEDS: APAP/HYDROCODONE 325/7.5 TAB PO PRN ×5 (03:35→23:33)
[2019-03-03 03:36] VITALS: BP 99/62
[2019-03-03] MEDS: VARENICLINE 1 MG TAB PO SCH ×2 (05:25→18:33)
[2019-03-03] MEDS: PANTOPRAZOLE SOD 40 MG TABEC PO SCH (05:25)
[2019-03-03 06:55] LABS: PLATELET COUNT, AUTOMATED 563 K/uL (150-450)
[2019-03-03 07:31] VITALS: BP 95/66
[2019-03-03] MEDS: CELECOXIB 200 MG CAP PO SCH ×2 (07:35→17:36)
[2019-03-03] MEDS: ASPIRIN 325 MG TAB PO SCH (08:28)
--- NOTE | 2019-03-03 08:31 | Hospitalist Progress Note ---
Subjective Progress Notes Subjective This patient was admitted for a septic knee. She had no acute issues overnight. Patient Complains of: Cardiovascular: No: Chest Pain Respiratory: No: Shortness of Breath Physical Exam Vital Signs Date Time Temp Pulse Resp B/P (MAP) Pulse Ox O2 Delivery O2 Flow Rate FiO2 03/03/19 07:39 93 03/03/19 07:39 Room Air 03/03/19 07:31 97.9 74 16 95/66 (76) 03/02/19 23:26 1.0 Intake and Output 03/03/19 07:00 Intake Total 565 ml Balance 565 ml Intake Oral 460 ml IV Total 105 ml # Voids 5 # Bowel Movements 2 Cardiovascular: Regular Rate and Rhythm Respiratory: Clear to Auscultation Result Diagram: 03/03/19 0524 Assessment and Plan Problems: (1) Status post left knee replacement Status: Acute Assessment & Plan: She has had hardware removal, washout, antibiotic spacers placed. She appears to be doing well. She will be on aspirin 325mg daily for DVT prophylaxis as per Dr. Lopez. She has also been started on ertapenem 1gm IV daily. PICC line is in place. (2) Anemia Status: Acute Assessment & Plan: Her hemoglobin s/p knee hardware removal is 7.1. She received 2 units blood transfusion 03/01. Anemia likely secondary to blood loss from surgery. Hgb 8.7 today. Continue to monitor. (3) Arrhythmia Status: Chronic Assessment & Plan: She has chronic tachycardia of unknown etiology. She has been managed with metoprolol ext release 25mg daily. No changes. (4) Santoro's esophagus Status: Chronic Assessment & Plan: Will continue her PPI therapy - Protonix 40mg daily while here (omeprazole at home). (5) Smoking trying to quit Status: Chronic Assessment & Plan: Continue her Chantix 1mg PO BID. Exam Sepsis Risk: No Definite Risk ELE COREA DO Mar 03, 2019 08:31
[2019-03-03 11:22] VITALS: BP 98/71
--- NOTE | 2019-03-03 14:20 | NUR ---
Physical Therapy Impression Pt completed ther ex per modified hand out in supine. Pt then trialed FWW with B) platform attachments. Pt noted that lower FWW was more comfortable than the platforms. Pt then completed short distance ambulation followed by bed transfer to elevate and apply ice. Physical Therapy Goals In order to return home safely: 1. Pt to be modified indep with bed mobility and supine to/from sit trnsfrs 2. Pt to be modified indep with sit to/from stand transfer 3. Pt to ambulate with limited TTWB on L) LE using FWW x 100' 4. Pt to complete up/down 15 steps with rail and modified indep while negotiating the walker up/down various levels indep in order to simulate full access to living areas of her home while maintaining limited weight bearing precaution. Patient's Goals
[2019-03-03 14:58] VITALS: BP 111/68
[2019-03-03] MEDS: METOPROLOL SUCC XL 25 MG TABCR PO SCH (17:35)
[2019-03-03 19:37] VITALS: BP 102/70
[2019-03-03] MEDS: ERTAPENEM(*) 1 GM VIAL 1 GM in NS(*) 0.9% 100 ML MINI-BAG 100 ML IVPB SCH (21:02)
[2019-03-03 23:32] VITALS: BP 108/64
[2019-03-04 03:01] VITALS: BP 101/55
[2019-03-04] MEDS: APAP/HYDROCODONE 325/7.5 TAB PO PRN ×3 (04:03→17:53)
[2019-03-04] MEDS: DIAZEPAM 5 MG TAB PO PRN ×2 (04:03→15:06)
[2019-03-04] MEDS: PANTOPRAZOLE SOD 40 MG TABEC PO SCH (05:46)
[2019-03-04] MEDS: VARENICLINE 1 MG TAB PO SCH ×2 (05:47→17:40)
[2019-03-04] MEDS: CELECOXIB 200 MG CAP PO SCH ×2 (09:00→17:40)
[2019-03-04] MEDS: ASPIRIN 325 MG TAB PO SCH (09:00)
[2019-03-04 09:09] VITALS: BP 116/78
[2019-03-04 11:32] VITALS: BP 111/75
[2019-03-04 15:04] VITALS: BP 121/74
[2019-03-04] MEDS: METOPROLOL SUCC XL 25 MG TABCR PO SCH ×2 (18:00→19:37)
[2019-03-04 19:40] VITALS: BP 125/81
[2019-03-04] MEDS: ERTAPENEM(*) 1 GM VIAL 1 GM in NS(*) 0.9% 100 ML MINI-BAG 100 ML IVPB SCH (21:00)
[2019-03-04 23:00] VITALS: BP 121/63
[2019-03-05] MEDS: APAP/HYDROCODONE 325/7.5 TAB PO PRN ×4 (00:35→19:46)
[2019-03-05 03:08] VITALS: BP 125/71
[2019-03-05] MEDS: DIAZEPAM 5 MG TAB PO PRN ×2 (03:21→14:59)
[2019-03-05] MEDS: PANTOPRAZOLE SOD 40 MG TABEC PO SCH (05:53)
[2019-03-05] MEDS: VARENICLINE 1 MG TAB PO SCH ×2 (05:53→19:45)
[2019-03-05 09:31] VITALS: BP 121/67
[2019-03-05] MEDS: CELECOXIB 200 MG CAP PO SCH ×2 (09:34→19:45)
[2019-03-05] MEDS: ASPIRIN 325 MG TAB PO SCH (09:34)
--- NOTE | 2019-03-05 10:12 | Hospitalist Progress Note ---
Subjective Progress Notes Subjective She was admitted with septic knee. She has no complaints this morning. She had no acute events overnight. Patient Complains of: Cardiovascular: No: Chest Pain Respiratory: No: Shortness of Breath Physical Exam Vital Signs Date Time Temp Pulse Resp B/P (MAP) Pulse Ox O2 Delivery O2 Flow Rate FiO2 03/05/19 09:31 98.2 83 14 121/67 (85) 92 Room Air 03/04/19 23:00 0.5 Intake and Output 03/05/19 01:00 Intake Total 580 ml Balance 580 ml Intake Oral 480 ml IV Total 100 ml # Voids 1 # Bowel Movements 1 General Appearance: Alert, Awake, No Acute Distress, Afebrile Neuro: No Gross deficits Cardiovascular: Regular Rate and Rhythm Respiratory: No Respiratory Distress, Clear to Auscultation GI: Soft and Non-Tender Psych: Alert & Oriented X3, Appropriate Mood & Affect Result Diagram: 03/03/19 0524 Assessment and Plan Problems: (1) Status post left knee replacement Status: Acute Assessment & Plan: She has had hardware removal, washout, antibiotic spacers placed. She appears to be doing well. She will be on aspirin 325mg daily for DVT prophylaxis as per Dr. Lopez. She has also been started on ertapenem 1gm IV daily. PICC line is in place. (2) Anemia Status: Acute Assessment & Plan: Her hemoglobin s/p knee hardware removal is 7.1. She received 2 units blood transfusion 03/01. Anemia likely secondary to blood loss from surgery. Hgb 9.3. Continue to monitor. (3) Arrhythmia Status: Chronic Assessment & Plan: She has chronic tachycardia of unknown etiology. She has been managed with metoprolol ext release 25mg daily. No changes. (4) Santoro's esophagus Status: Chronic Assessment & Plan: Will continue her PPI therapy - Protonix 40mg daily while here (omeprazole at home). (5) Smoking trying to quit Status: Chronic Assessment & Plan: Continue her Chantix 1mg PO BID. Exam Sepsis Risk: No Definite Risk RAS ERNST [employer]CTION MANAGER Mar 05, 2019 10:12
[2019-03-05 11:09] VITALS: BP 133/70
--- NOTE | 2019-03-05 11:26 | NUR ---
Physical Therapy Impression Pt utilizes bed rails to assist with bed mobility. With use of bed rails, Pt able to perform supine<>sit transfers with SBA. Pt able to transfer sit<>stand from the bed and wheelchair to RW with SBA and good compliance with TTWB. Pt ambulated 50' with RW and good compliance with TTWB. Pt taken to 4" stair with technique demonstrated. Pt attempted stair but was unable to ascend. Pt simulated stair within RW but was unable to lift R LE enough to safely clear stair. Pt will benefit from additional rehab in order to continue stair training. Physical Therapy Goals In order to return home safely: 1. Pt to be modified indep with bed mobility and supine to/from sit trnsfrs 2. Pt to be modified indep with sit to/from stand transfer 3. Pt to ambulate with limited TTWB on L) LE using FWW x 100' 4. Pt to complete up/down 15 steps with rail and modified indep while negotiating the walker up/down various levels indep in order to simulate full access to living areas of her home while maintaining limited weight bearing precaution. Patient's Goals
--- NOTE | 2019-03-05 15:58 | NUR ---
PHYSICAL THERAPY INFORMATION TRANSFER SHEET BED MOBILITY: Standby Assistance TRANSFERS: Standby Assistance GAIT: 50 ' with RW Knee Immobilizer and Standby Assistance Weightbearing Status: Partial weight bearing - 30lbs STAIRS: with . EXERCISES: Verbalizes Needs: Yes Understands Directions Yes Cooperative: Yes Family Teaching: No Physical Therapy Comment:
[2019-03-05 18:42] VITALS: BP 108/74
[2019-03-05] MEDS: METOPROLOL SUCC XL 25 MG TABCR PO SCH (19:45)
[2019-03-05] MEDS ORDERED: HEPARIN FLSH (PORT) 500 UN/5ML IVP PRN (20:00)
[2019-03-05] MEDS: ERTAPENEM(*) 1 GM VIAL 1 GM in NS(*) 0.9% 100 ML MINI-BAG 100 ML IVPB SCH (20:44)
[2019-03-05 23:54] VITALS: BP 115/66
[2019-03-06 02:43] VITALS: BP 132/69
[2019-03-06] MEDS: APAP/HYDROCODONE 325/7.5 TAB PO PRN (02:52)
[2019-03-06] MEDS: VARENICLINE 1 MG TAB PO SCH (06:12)
[2019-03-06] MEDS: PANTOPRAZOLE SOD 40 MG TABEC PO SCH (06:12)
[2019-03-06 07:11] VITALS: BP 118/74
[2019-03-06] MEDS ORDERED: ERTA1VIA IV (07:25)
[2019-03-06] MEDS ORDERED: OXYC-823 PO (07:31)
[2019-03-06] MEDS ORDERED: HYDR-654 PO (07:32)
[2019-03-06] MEDS: ASPIRIN 325 MG TAB PO SCH (08:46)
[2019-03-06] MEDS: CELECOXIB 200 MG CAP PO SCH (08:46)
--- NOTE | 2019-03-06 09:22 | Hospitalist Progress Note ---
Subjective Progress Notes Subjective She was admitted with septic knee. She has been accepted to [facility] in [place]. Patient Complains of: Cardiovascular: No: Chest Pain Respiratory: No: Shortness of Breath Physical Exam Vital Signs Date Time Temp Pulse Resp B/P (MAP) Pulse Ox O2 Delivery O2 Flow Rate FiO2 03/06/19 07:42 Room Air 03/06/19 07:11 97.8 83 20 118/74 (89) 94 Intake and Output 03/06/19 01:00 Intake Total 860 ml Output Total 1 ml Balance 859 ml Intake Oral 760 ml IV Total 100 ml Output Urine Total 1 ml # Voids 3 # Bowel Movements 2 General Appearance: Alert, Awake, No Acute Distress, Afebrile Neuro: No Gross deficits Cardiovascular: Regular Rate and Rhythm Respiratory: No Respiratory Distress, Clear to Auscultation GI: Soft and Non-Tender Extremities: Warm, Perfused; No Edema Psych: Alert & Oriented X3, Appropriate Mood & Affect Result Diagram: 03/03/19 0524 Assessment and Plan Problems: (1) Status post left knee replacement Status: Acute Assessment & Plan: She has had hardware removal, washout, antibiotic spacers placed. She appears to be doing well. She will be on aspirin 325mg daily for DVT prophylaxis as per Dr. Lopez. She has also been started on ertapenem 1gm IV daily. PICC line is in place. She will transfer to [facility] today. (2) Anemia Status: Acute Assessment & Plan: Her hemoglobin s/p knee hardware removal is 7.1. She received 2 units blood transfusion 03/01. Anemia likely secondary to blood loss from surgery. Hgb 9.3. (3) Arrhythmia Status: Chronic Assessment & Plan: She has chronic tachycardia of unknown etiology. She has been managed with metoprolol ext release 25mg daily. No changes. (4) Santoro's esophagus Status: Chronic Assessment & Plan: Will continue her PPI therapy - Protonix 40mg daily while here (omeprazole at home). (5) Smoking trying to quit Status: Chronic Assessment & Plan: Continue her Chantix 1mg PO BID. Exam Sepsis Risk: No Definite Risk RAS ERNSTP Mar 06, 2019 09:22
== END 2019-03-06 09:10 | disposition short-term general hospital (02) | DRG 467 ==
LOC: OR 00:17 → MED 19:35
PROVIDERS: ADMIT Orthopaedic Surgery; ATTEND Orthopaedic Surgery
PROC: 0SRD0EZ Replacement of Left Knee Joint with Articulating Spacer, Open Approach (ICD-10-PCS; 2019-02-28)
PROC: 0SPD0JZ Removal of Synthetic Substitute from Left Knee Joint, Open Approach (ICD-10-PCS; principal; 2019-02-28 14:32)
PROC: 30243N1 Transfusion of Nonautologous Red Blood Cells into Central Vein, Percutaneous Approach (ICD-10-PCS; 2019-03-01)
DX: T84.54XA Infection and inflammatory reaction due to internal left knee prosthesis, initial encounter (principal); D62 Acute posthemorrhagic anemia; Z68.41 Body mass index [BMI] 40.0-44.9, adult; E66.01 Morbid (severe) obesity due to excess calories; F32.9 Major depressive disorder, single episode, unspecified; R00.0 Tachycardia, unspecified; K22.70 Barrett's esophagus without dysplasia; F17.210 Nicotine dependence, cigarettes, uncomplicated
CPT/HCPCS: 36415; 85025; 85610; 86850; 86900; 86901; 86920; 87071; 87073; 87205; 97161; C1713; C1776; J0690; J1100; J1335; J1642; J2001; J2250; J2270; J2405; J2550; J2704; J2997; J3010; J3370; J7060; P9016

== ENCOUNTER 2019-05-01 01:47 | Inpatient (IN) | payer BC ==
--- NOTE | 2019-04-30 11:55 | LEVENE H&P ---
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 HISTORY OF PRESENT ILLNESS She has had I and D and implantation of an antibiotic-loaded cement spacer as well as appropriate infectious disease management with IV antibiotics. She is off antibiotics and the clinical appearance of the knee is improving. Revision surgery is indicated at this time to remove the antibiotic implant and to revise the knee arthroplasty. PAST MEDICAL HISTORY 1. Rheumatoid arthritis. 2. Equivocal obstructive pulmonary disease. 3. Acid reflux. PAST SURGICAL HISTORY 1. Hysterectomy. 2. Bladder lift. 3. Contralateral knee replacement. 4. Above-mentioned knee surgeries. 5. Cholecystectomy. 6. Tonsillectomy. FAMILY HISTORY Noncontributory. SOCIAL HISTORY Notable for smoking for 35 years, trying to quit. Intermittently, alcohol social use. REVIEW OF SYSTEMS Otherwise noncontributory. ALLERGIES Gabapentin, which causes itching. CURRENT MEDICATIONS 1. Flexeril 10 mg p.o. p.r.n. 2. Chantix 1 mg p.o. b.i.d. 3. Prilosec 40 mg p.o. every day. 4. Metoprolol 25 mg p.o. every day. 5. Citalopram 20 mg p.o. every day. 6. Aspirin; stopped in preparation for surgery. PHYSICAL EXAMINATION GENERAL: This is a healthy female. HEENT: Normocephalic, atraumatic. NECK: Supple. LUNGS: Clear. HEART: Regular. ABDOMEN: Soft. ORTHOPEDIC EXAMINATION The left knee is quiet with no erythema. The wound is well healed. Motion is about 0 to 70. Gross stability is good. Calves are nontender. Neurovascular function is intact. ASSESSMENT Left knee deep infection, status post irrigation and debridement, component explantation, antibiotic spacer placement and appropriate IV antibiotic management. PLAN Per patient's request, we are going to proceed with total knee revision at this time. The nature of the procedure, the risks, benefits, the anticipated rehabilitative course were outlined and all questions were answered. The risks of the procedure include, but are not limited to, , major medical or anesthetic complication, recurrent infection, neurovascular injury, blood transfusion, stiffness, scarring, fracture, tendon rupture, instability, implant loosening, migration or failure, persistent or recurrent pain, need for additional surgery and other unforeseen. She understands and wishes to proceed. A signed permit is placed in the chart. No guarantees are given or implied. DANI
[2019-04-30 15:19] LABS: INR 0.95
[~2019-05-01] VITALS: Ht 162.6 cm; Wt 110.7 kg
[2019-05-01] VITALS (9 sets, daily range): BP systolic 111–132; BP diastolic 71–88
[~2019-05-01 01:47] MED LIST changes: +ERTA1VIA IV; +OXYC-823 PO
[2019-05-01] MEDS: LIDOCAINE/SOD BICARB 8.4% SYR ID ONE ×2 (12:47→13:32)
[2019-05-01] MEDS ORDERED: LIDOCAINE MPF 1% 5 ML VIAL ONE (13:46)
[2019-05-01] MEDS ORDERED: fentaNYL CITR 100 MCG/2 ML AMP ONE ×2 (13:46→18:24)
[2019-05-01] MEDS ORDERED: PROPOFOL EMUL(*) 10MG/ML 20 ML 20 ML ONE (13:46)
[2019-05-01] MEDS ORDERED: DEXAMETHASONE SOD PHOS 10MG/ML ONE (13:46)
[2019-05-01] MEDS ORDERED: ONDANSETRON 4 MG/2 ML VIAL ONE (13:46)
[2019-05-01] MEDS ORDERED: TRANEXAMIC AC 1000 MG/10ML SDV 1,000 MG in DEXTROSE 5% 50 ML BAG 50 ML IV ONE (14:45)
[2019-05-01] MEDS ORDERED: ceFAZolin(*) 2GM/D5W 50ML 50 ML IVPB ONE (14:45)
[2019-05-01] MEDS ORDERED: ROPIVACAINE/EPI/CLONIDINE/KET 50 ML SYRINGE INJ ONE (14:45)
[2019-05-01] MEDS ORDERED: MIDAZOLAM 2 MG/2 ML VIAL IVP PRN (14:45)
[2019-05-01] MEDS ORDERED: CELECOXIB 200 MG CAP PO ONE (14:45)
[2019-05-01] MEDS ORDERED: NORMOSOL R SOLN(*) 1000 ML BAG 1,000 ML IV PRN ×2 (14:45→19:15)
[2019-05-01] MEDS ORDERED: ACETAMINOPHEN 500 MG TAB PO ONE (14:45)
[2019-05-01] MEDS ORDERED: VANCOMYCIN 1 GM VIAL ONE (14:50)
[2019-05-01] MEDS ORDERED: ROCURONIUM BR 10 MG/ML 5 ML SY 5 ML ONE (15:40)
[2019-05-01] MEDS ORDERED: ePHEDrine 25 MG/5 ML DISP.SYR IVP ONE (15:43)
[2019-05-01] MEDS ORDERED: LIDOCAINE 2% JELLY 5 ML TUBE ONE (16:52)
[2019-05-01] MEDS ORDERED: LACTATED RINGER 3000 ML BAG IR ONE (16:59)
[2019-05-01] MEDS ORDERED: NS 0.9% IRRIGATION 1000ML PLCT IR ONE (16:59)
[2019-05-01] MEDS ORDERED: LABETALOL HCL 100 MG/20ML VIAL ONE ×2 (17:43→17:44)
[2019-05-01] MEDS ORDERED: ZOLPIDEM TARTRATE 5 MG TAB PO PRN (19:15)
[2019-05-01] MEDS ORDERED: diphenhydrAMINE 25 MG CAP PO PRN (19:15)
[2019-05-01] MEDS ORDERED: MAGNESIUM HYDROXIDE* 30ML UDCP PO PRN (19:15)
[2019-05-01] MEDS ORDERED: PROMETHAZINE 25 MG/ML 1 ML AMP IVP PRN (19:15)
[2019-05-01] MEDS ORDERED: diphenhydrAMINE 50 MG/ML VIAL IVP PRN (19:15)
[2019-05-01] MEDS ORDERED: BISACODYL 10 MG SUPP PR PRN (19:15)
[2019-05-01] MEDS ORDERED: BENZOCAINE/MENTHOL 1 EACH LOZG PO PRN (19:15)
[2019-05-01] MEDS ORDERED: FLUSH 10 ML SYR IVP PRN (19:15)
[2019-05-01] MEDS ORDERED: ACETAMINOPHEN 325 MG TAB PO PRN (19:15)
[2019-05-01] MEDS ORDERED: PROMETHAZINE 25 MG/ML 1 ML AMP ONE (19:17)
--- NOTE | 2019-05-01 19:52 | RADIOLOGY IMAGING REPORT ---
FACILITY: [facility] PATIENT NAME: Mireya Lovelace : 1970 MR: [id number] V: [id number] EXAM DATE: ORDERING PHYSICIAN: CHINO RUTLEDGE TECHNOLOGIST: Location: [facility] [place] Patient: Mireya Lovelace : 1970 Visit/Account:[id number] Date of Sevice: 05/01/2019 KNEE LIMITED LEFT Indication: Postop total knee arthroplasty revision Comparison: February 28, 2018 Findings: Interval left knee arthroplasty revision. Intramedullary femoral and tibial components appear well se ated. No findings of hardware failure. Postoperative joint spaces are maintained Hemarthrosis with internal gas Generalized soft tissue swelling with surgical clips at the midline. No evidence of radiopaque foreign body. IMPRESSION: 1. Left knee arthroplasty revision as described Report Dictated By: Shawn Chicas MD at 05/01/2019 7:43 PM Report E-Signed By: Shawn Chicas MD at 05/01/2019 7:44 PM WSN:[id number]
[2019-05-01] MEDS: APAP/HYDROCODONE 325/7.5 TAB PO PRN (20:49)
[2019-05-01] MEDS: VARENICLINE 1 MG TAB PO SCH (21:29)
[2019-05-01] MEDS: DIAZEPAM 5 MG TAB PO PRN (22:08)
--- NOTE | 2019-05-01 22:08 | Hospitalist Consultation ---
History of Present Illness Requesting Physician Dr. Lopez Reason for Consult Tachycardia History of Present Illness This patient was admitted for knee revision surgery. It is reported that the surgery went well and was without complication. History Problems: (1) RA (rheumatoid arthritis) Status: Chronic (2) Santoro's esophagus Status: Chronic (3) Arrhythmia Status: Chronic Home Meds Active Scripts Aspirin (ASPIRIN) 325 Mg Tablet, 325 MG PO DAILY, #30 TAB Prov:RAS ERNST [employer]ATIONS MANAGER 01/26/19 Reported Medications Citalopram Hydrobromide (CITALOPRAM HBR) 20 Mg Tablet, 20 MG PO QDAY, #5 TAB 02/27/19 Metoprolol Succinate (METOPROLOL SUCCINATE) Unknown Strength Tab.er.24h, 25 MG PO QDAY, TAB 11/08/18 Varenicline Tartrate (CHANTIX) 1 Mg Tablet, 1 MG PO BID 11/08/18 Omeprazole (OMEPRAZOLE) 40 Mg Capsule.dr, 40 MG PO QDAY, CAP 09/07/17 Discontinued Reported Medications Hydrocodone Bit/Acetaminophen (NORCO 7.5-325 TABLET) 1 Each Tablet, 1-2 EACH PO Q4-6H PRN for PAIN, #42 03/06/19 Oxycodone Hcl (OXYCONTIN) 10 Mg Tab.er.12h, 10 MG PO Q12H, #15 TAB 03/06/19 Ertapenem (INVANZ) 1 Gm Injs, 1 GM IV Q24H for 42 Days 03/06/19 Hydroxyzine Pamoate (HYDROXYZINE PAMOATE) 25 Mg Capsule, 25 MG PO 3-4XD, CAPSULE 02/27/19 Docusate Sodium (DULCOLAX STOOL SOFTENER) 100 Mg Capsule, 100 MG PO DAILY PRN for CONSTIPATION, CAPSULE 02/01/19 Polyethylene Glycol 3350 (MIRALAX) 17 Gm Powd.pack, 17 GM PO DAILY PRN for CONSTIPATION, PKT 02/01/19 Allergies: Coded Allergies: gabapentin (Verified Allergy, Intermediate, ITCHY/IRRIATED SKIN, 04/25/19) Hx Smoking: Yes (1PPD X35 YEARS ) Smoking Status: Former Smoker Caffeine Intake: Soda Caffeine/Cups Per Day: 3-4 32 OZ/DAY Hx Alcohol Use: No Hx Substance Use Disorder: Yes (CURRENT CBD GUMMIES AND THC USE. FORMER METH USE QUIT 1988) Social Drug Use: Currently Social Drugs: Marijuana, Meth Amount Of Social Drug/s Used: CBD AND THC USE TO HELP WITH PAIN OCCATIONALLY 2/MONTH Review of Systems All Systems Reviewed/Normal: Yes Exam Vital Signs Vital Signs Date Time Temp Pulse Resp B/P (MAP) Pulse Ox O2 Delivery O2 Flow Rate FiO2 05/01/19 20:15 76 16 95 05/01/19 12:58 97.7 132/88 (103) Room Air Neuro: No Gross deficits Eyes: PERRLA Cardiovascular: Regular Rate and Rhythm Respiratory: Clear to Auscultation Extremities: No Edema Assessment and Plan Problems: (1) Status post left knee replacement Status: Acute Assessment & Plan: She is on aspirin prophylaxis. (2) Arrhythmia Status: Chronic Assessment & Plan: She is on chronic treatment with metoprolol, which has been ordered with hold parameters. (3) Santoro's esophagus Status: Chronic Assessment & Plan: She is on chronic treatment with Prilosec. Copies to: CHINO LOPEZ MD ; Venous Thromboembolism Antithrombotics Is Pt On Any Antithrombotics?: No ELE COREA DO May 01, 2019 22:08
[2019-05-01] MEDS ORDERED: NS(*) 0.9% 250 ML BAG 250 ML ONE (23:34)
[2019-05-02] VITALS: BP 124/76
[2019-05-02] MEDS: ceFAZolin(*) 1 GM VIAL 1 GM in NS(*) 0.9% 100 ML MINI-BAG 100 ML IVPB SCH ×3 (00:19→15:59)
[2019-05-02] MEDS: APAP/HYDROCODONE 325/7.5 TAB PO PRN ×6 (01:05→22:15)
[2019-05-02 03:14] VITALS: BP 119/70
[2019-05-02] MEDS: DIAZEPAM 5 MG TAB PO PRN ×3 (04:29→18:12)
[2019-05-02] MEDS: PANTOPRAZOLE SOD 40 MG TABEC PO SCH (04:29)
[2019-05-02 07:28] VITALS: BP 112/69
--- NOTE | 2019-05-02 08:21 | OPERATIVE REPORT 1 ---
EVENT DATE: May 01, 2019 SURGEON: Gamaliel Lopez MD ANESTHESIOLOGIST: Edilberto Yao MD ANESTHESIA: General plus spinal. DIGITAL SOLUTION ARCHITECT: Fercho Crane PA-C PREOPERATIVE DIAGNOSIS Retained antibiotic spacer status post incision and drainage and treatment of deep infection post-knee arthroplasty. POSTOPERATIVE DIAGNOSIS Retained antibiotic spacer status post incision and drainage and treatment of deep infection post-knee arthroplasty. PROCEDURE PERFORMED Explantation of antibiotic spacer on the femur, tibial and patella with revision total knee arthroplasty (22 modifier). ESTIMATED BLOOD LOSS Minimal. DRAINS None. SPECIMENS Periprosthetic membrane sent for culture as well as intraoperative frozen section. COMPLICATIONS None apparent. TOURNIQUET TIME [*] IMPLANTS USED Backspacesathlon knee revision system with a 4 left TS femur, a 4 mm off-set adaptor, a distal augment left medial, a posterior augment left lateral femoral condyle 5 mm as well as a 150 mm, 14 mm diameter TS fluted Press-Fit stem, a universal baseplate with a tibial asymmetric cone, tritanium augment size C, a Triathlon fluted stem 10 mm x 100 length TS, a universal cement all polyethylene patellar button, size 33 with 9 mm thickness and a 60 mm total stabilizer TS insert for the size 4 baseplate with associated peg. INDICATIONS Mireya is status post Morganella deep infection of hematoma. She has undergone irrigation and debridement, explantation and appropriate IV antibiotics per Infectious Disease recommendations. The clinical appearance of the knee has quieted down and she has had sufficient treatment without any worsening of symptoms off antibiotics implantation. A reimplantation is indicated at this time to restore function and relieve pain. DESCRIPTION OF PROCEDURE The patient was taken to the operating room and placed supine on the operating table. Spinal block was administered by the anesthesiologist. General anesthesia was induced and antibiotics and TXA were administered IV. The left lower extremity was prepped and draped in the usual sterile fashion for knee arthroplasty. The limb was exsanguinated with an Esmarch bandage. The tourniquet was inflated to 300 mmHg. The old incision was opened and carried 1 cm proximal and distal. Dissection was carried down through the scar to the extensor mechanism. Full-thickness flaps were developed far enough to see the site of the retained sutures from prior closure for the medial patellar arthrotomy. This was reopened, extended a bit proximally. The knee is quite stiff. Scar tissue was dissected away as much as possible. 0.062 K-wire is used to protect the patellar tendon insertion onto the tibial tubercle to prevent peel-off and systematic release of scar was performed. The femoral component is easily explanted. An osteotome was used to lift the tibial component and a Ventura elevator used to lift the cemented patellar button. These were removed and all residual cement fragments were removed. In order to facilitate further exposure, a lateral release was performed inside out from the superior lateral border of the patella down to the level of the bone on the tibia. This permits the patella to be subluxed and held out of position, providing adequate exposure. A provisional lavage was performed and the quality of the tissue and the synovial fluid appears benign. Synovial fluid swabs were obtained for culture. Paraprosthetic tissue is sent from multiple locations for analysis, frozen sections for WBC per high-powered field. This comes back less than 5 and also for tissue culture. Subsequently, all debris is scraped away. The tibia is prepared first. The canal was found and reaming performed up to 10 and a depth of 175 to use intramedullary alignment. The clean-up cutting block was applied and set to take an additional 2 to 3 mm of clean up bone. This was off the medial side. There was some deficiency of the bone, metaphyseal laterally and there is not a complete rim due to bit of bone loss during explantation and the infectious process. Due to exposure and a standard flap, augment will not be possible on this side in order to provide adequate support. It appears that a cone would ideal. First clean-up cut is performed and then off of the intramedullary mima reaming down to level C for the cone is performed. Eccentric cone is going to be used to provide better metaphyseal support for the implant laterally. The secondary reamer is used to create the spacer for the cone. A trial cone sits down nicely and serves its purpose ideally. A shorter stem is selected due to the ability to use the cone and a 100 mm, 10 mm cone is used. This is inserted to make sure that there is not going to be a problem with translational alignment. This seats down nicely and has good support. Attention is turned to the femoral preparation. The canal was found and reaming at a depth of the 4th line to accommodate for a 150 stem is performed until nice end osteal contact is obtained. This was used for intramedullary alignment. The distal femoral clean-up cutting block was applied and aligned to take about a 2 mm clean-up from the distal lateral femoral condyle. This will be an air ball medially. The epicondylar line is aligned. The block is pinned and the clean-up cut is performed laterally which does get nice bone. There is not adequate bone contact medially so a +5 resection is made which will be substituted for the augment. The augment is applied to the 4-in-l cutting block for a size 4 which was previously used and appears appropriate based on intraoperative sizing. This is dropped down 4 mm posteriorly to assure that it is going to make nice contact with the anterior phalange at the site of the old anterior cut and then rotational alignment is determined with the epicondylar access as well as the previous anterior cut. This block is pinned in position and clean-up posterior cut is performed outside of the block posterior medially with good contact, posterior laterally. A 5 mm augment resection is required to get good bone contact. Chamfer cuts were made as well as clean-up anterior cut which basically takes no additional bone. There is no notching. The trial femur is subsequently assembled and seats nicely. This is inserted along with the trial tibia and good congregation of gap balance and stability are achievable with this combination. The patella was previously at a 33. The holes were aligned for the 33. This appears appropriate. A 1 mm clean-up cut is made and this appears to be about 14 mm thick. Bring it down to about 13 mm thickness and certainly adequate residual patella for reimplantation. The clamp was then used and the holes were deepened appropriately. This is copiously lavaged to remove all of loose debris. The wound is then extensively lavaged and all fibrous tissue and membraned is removed as much as possible. Subsequently, the actual metaphyseal cone is impacted and seats 1 mm or so below the surface of the rim. This was felt to be satisfactory. Mix of methacrylate was made with Tobramycin impregnated simplex and this is placed across the plateau to fill all defects and a more doughy phase is packed in to the inter portion of the cone to provide support beneath the implants placed on the back side of the tibia, but the stem itself is not cemented. This was introduced down the canal, rotational alignment is assured and this is impacted into position and seats nicely. Femur is likewise cemented using standard technique and the patella is held with a clamp. The cement is fully polymerized, the tourniquet was deflated. Meticulous hemostasis was assured. The 16 TS liner fills up the gap ideally allowing the knee to drop to full extension without hyperextension, providing optimal soft tissue tension and stability. The tray is lavaged and dried. The actual liner is locked onto the baseplate. The retention post is impacted and then the joint is reduced. The arthrotomy is closed in flexion with #2 Ethibond ran first with a Quill proximally to make sure the extensor mechanism is rock solid and water tight with the exception of course of the lateral release. Vancomycin powder was placed deep in the wound. Dermis was closed with 3-0 Vicryl and the skin with surgical magan. Xeroform was applied, 4x4, dry sterile dressing, and compression wrap. The patient was awakened from anesthesia and taken to the recovery room in stable condition having tolerated the procedure well. The plan is for standard TKA rehab protocol, weightbearing as tolerated. No motion restrictions. Standard perioperative antibiotic prophylaxis unless something turns up on the culture. MTDD
[2019-05-02] MEDS: ASPIRIN 325 MG TAB PO SCH (08:48)
[2019-05-02] MEDS: CELECOXIB 200 MG CAP PO SCH ×2 (08:48→17:22)
[2019-05-02] MEDS: VARENICLINE 1 MG TAB PO SCH ×2 (08:49→21:43)
[2019-05-02] MEDS: CITALOPRAM HYDROBROM 20 MG TAB PO SCH (08:49)
[2019-05-02] MEDS: METOPROLOL SUCC XL 25 MG TABCR PO SCH (08:51)
[2019-05-02] MEDS ORDERED: PANTOPRAZOLE SOD 40 MG TABEC PO SCH (09:00)
--- NOTE | 2019-05-02 09:39 | Hospitalist Progress Note ---
Subjective Progress Notes Subjective She was admitted s/p knee replacement. She had no acute events overnight. Patient Complains of: Cardiovascular: No: Chest Pain Respiratory: No: Shortness of Breath Physical Exam Vital Signs Date Time Temp Pulse Resp B/P (MAP) Pulse Ox O2 Delivery O2 Flow Rate FiO2 05/02/19 09:24 95 05/02/19 07:28 98.2 95 16 112/69 (83) Room Air 05/02/19 03:14 1.0 Intake and Output 05/02/19 01:03 Intake Total 6882 ml Output Total 100 ml Balance 6782 ml Intake Oral 782 ml IV Total 3100 ml Other 3000 ml Output Estimated Blood Loss 100 ml # Voids 2 General Appearance: Alert, Awake, No Acute Distress, Afebrile Neuro: No Gross deficits Cardiovascular: Regular Rate and Rhythm Respiratory: No Respiratory Distress, Clear to Auscultation Psych: Alert & Oriented X3, Appropriate Mood & Affect Assessment and Plan Problems: (1) Status post left knee replacement Status: Acute Assessment & Plan: She is on aspirin prophylaxis. (2) Arrhythmia Status: Chronic Assessment & Plan: She is on chronic treatment with metoprolol, which has been ordered with hold parameters. (3) Santoro's esophagus Status: Chronic Assessment & Plan: She is on chronic treatment with Prilosec. Exam Sepsis Risk: No Definite Risk RAS ERNST MANAGER GRANT May 02, 2019 09:39
[2019-05-02 11:36] VITALS: BP 106/65
--- NOTE | 2019-05-02 12:19 | NUR ---
Physical Therapy Impression PT eval completed followed by treatment session. Pt demos SBA for bed mobility and transfers, as well as ambulation with FWW x 100'. Pt would benefit from further therapy to address stairs prior to d/c home. Physical Therapy Goals 1. Pt to be modified indep with all bed mobility and sup<>sit trnsfrs 2. Pt to be modified indep with sit to/from stand transfers 3. Pt to be SBA/CGA for up/down 4 steps with rail Patient's Goals
[2019-05-02 15:22] VITALS: Ht 162.6 cm; Wt 110.7 kg
--- NOTE | 2019-05-02 15:56 | NUR ---
Physical Therapy Impression Pt progressing with ambulation as anticipated. Plan to address stairs in sequence tomorrow with potential d/c thereafter if no difficulties arise. Physical Therapy Goals 1. Pt to be modified indep with all bed mobility and sup<>sit trnsfrs 2. Pt to be modified indep with sit to/from stand transfers 3. Pt to be SBA/CGA for up/down 4 steps with rail Patient's Goals
[2019-05-02 16:00] VITALS: BP 115/61
[2019-05-02 19:55] VITALS: BP 119/71
[2019-05-03] MEDS: DIAZEPAM 5 MG TAB PO PRN ×2 (01:19→08:40)
[2019-05-03 01:22] VITALS: BP 110/74
[2019-05-03] MEDS: APAP/HYDROCODONE 325/7.5 TAB PO PRN ×3 (02:52→11:27)
[2019-05-03 05:16] VITALS: BP 119/60
[2019-05-03] MEDS: PANTOPRAZOLE SOD 40 MG TABEC PO SCH (05:23)
[2019-05-03 08:34] VITALS: BP 100/62
[2019-05-03] MEDS: VARENICLINE 1 MG TAB PO SCH (08:36)
[2019-05-03] MEDS: CITALOPRAM HYDROBROM 20 MG TAB PO SCH (08:36)
[2019-05-03] MEDS: CELECOXIB 200 MG CAP PO SCH (08:36)
[2019-05-03] MEDS: ASPIRIN 325 MG TAB PO SCH (08:36)
[2019-05-03] MEDS: METOPROLOL SUCC XL 25 MG TABCR PO SCH (08:36)
--- NOTE | 2019-05-03 09:51 | NUR ---
Physical Therapy Impression Pt has met all PT goals and is ready to d/c home from a mobility stand point. Pt is scheduled to follow up with out pt rehab once home. Physical Therapy Goals 1. Pt to be modified indep with all bed mobility and sup<>sit trnsfrs 2. Pt to be modified indep with sit to/from stand transfers 3. Pt to be SBA/CGA for up/down 4 steps with rail Patient's Goals
--- NOTE | 2019-05-03 10:12 | Hospitalist Progress Note ---
Subjective Progress Notes Subjective She was admitted s/p knee replacement. She has no complaints this morning. She had no acute events overnight. Patient Complains of: Cardiovascular: No: Chest Pain Physical Exam Vital Signs Date Time Temp Pulse Resp B/P (MAP) Pulse Ox O2 Delivery O2 Flow Rate FiO2 05/03/19 08:34 98.1 76 20 100/62 (75) 94 Room Air 05/03/19 05:16 1.0 Intake and Output 05/03/19 01:03 Intake Total 1384 ml Balance 1384 ml Intake Oral 1160 ml IV Total 224 ml # Voids 4 # Bowel Movements 1 General Appearance: Alert, Awake, No Acute Distress, Afebrile Neuro: No Gross deficits Cardiovascular: Regular Rate and Rhythm Respiratory: No Respiratory Distress, Clear to Auscultation Psych: Alert & Oriented X3, Appropriate Mood & Affect Assessment and Plan Problems: (1) Status post left knee replacement Status: Acute Assessment & Plan: She is on aspirin prophylaxis. (2) Arrhythmia Status: Chronic Assessment & Plan: She is on chronic treatment with metoprolol, which has been ordered with hold parameters. (3) Santoro's esophagus Status: Chronic Assessment & Plan: She is on chronic treatment with Prilosec. Exam Sepsis Risk: No Definite Risk RAS ERNST May 03, 2019 10:12
== END 2019-05-03 12:12 | disposition home or self-care (01) | DRG 467 ==
LOC: OR 01:47 → MED 20:15
PROVIDERS: ADMIT Orthopaedic Surgery; ATTEND Orthopaedic Surgery
PROC: 0SPC08Z Removal of Spacer from Right Knee Joint, Open Approach (ICD-10-PCS; 2019-05-01)
PROC: 0SRC0J9 Replacement of Right Knee Joint with Synthetic Substitute, Cemented, Open Approach (ICD-10-PCS; principal; 2019-05-01 15:36)
DX: T84.54XA Infection and inflammatory reaction due to internal left knee prosthesis, initial encounter (principal); Z68.41 Body mass index [BMI] 40.0-44.9, adult; K22.70 Barrett's esophagus without dysplasia; E66.01 Morbid (severe) obesity due to excess calories; M06.9 Rheumatoid arthritis, unspecified; F32.9 Major depressive disorder, single episode, unspecified; J43.9 Emphysema, unspecified; I49.9 Cardiac arrhythmia, unspecified; Z88.8 Allergy status to other drugs, medicaments and biological substances; Z90.49 Acquired absence of other specified parts of digestive tract
CPT/HCPCS: 85610; 86850; 86900; 86901; 88304; 88331; 97161; C1713; C1776; J0690; J1100; J2001; J2250; J2405; J2550; J2704; J3010; J3370; J7050; J7060